=== PATIENT | male | born 1965 | race Hispanic/Latino ===

== ENCOUNTER 2017-08-22 15:19 | Emergency (ER) | payer SELFPAY ==
[2017-08-22] MEDS ORDERED: DEXAMETHASONE 10 MG/ML VIAL ONE (16:44)
[2017-08-22] MEDS ORDERED: HYDROCODONE/APAP 10/325 TAB ONE (16:45)
--- NOTE | 2017-08-22 16:49 | RAD REPORT ---
EXAM DESCRIPTION: RAD - Knee Left 3 View - 08/22/2017 4:33 pm CLINICAL HISTORY: Left knee pain FINDINGS: No fracture or dislocation is seen. Soft tissue swelling is present. A small to moderate joint effusion is seen. Mild narrowing involves the medial compartment.
--- NOTE | 2017-08-22 16:50 | RAD REPORT ---
EXAM DESCRIPTION: RAD - Foot Left 3 View - 08/22/2017 4:33 pm CLINICAL HISTORY: Left Foot pain FINDINGS: No fracture or dislocation is seen. No bony erosions are noted. The joint spaces are well-maintained. The bones appear osteoporotic.
[2017-08-22] MEDS ORDERED: cloNIDine HCl 0.1 MG TAB ONE (17:03)
--- NOTE | 2017-08-22 17:24 | ER ---
Nurse's Notes [facility] Name: David Barraza Age: 52 yrs Sex: Male : 1965 Arrival Date: 08/22/2017 Time: 15:24 Bed 15 Private MD: Kishan Muñiz T Diagnosis: Pain in left knee-osteoarthritis of knee;Pain in left foot-possible gout of great toe Presentation: 08/22 15:28 Presenting complaint: Patient states: i noticed on and off swelling on my R knee and hj big toe joint, L ankle;. Transition of care: patient was not received from another setting of care. Onset of symptoms was August 22, 2017. Care prior to arrival: None. 15:28 Method Of Arrival: Ambulatory 15:28 Acuity: HAMMAD 4 hj Triage Assessment: 15:30 General: Appears in no apparent distress. uncomfortable, Behavior is calm, cooperative, hj appropriate for age. Pain: Denies pain. Historical: - Allergies: 15:30 No Known Allergies; hj - Home Meds: 15:30 losartan 100 mg oral tab 1 tab once daily [Active]; metoprolol tartrate 100 mg Oral tab hj 1 tab 2 times per day [Active]; - PMHx: 15:30 Hypertension; hj - PSHx: 15:30 None; hj - Immunization history:: Adult Immunizations not up to date. - Social history:: Smoking status: Patient/guardian denies using tobacco. Screenin:39 Abuse screen: Denies threats or abuse. Denies injuries from another. Nutritional wh screening: No deficits noted. Tuberculosis screening: No symptoms or risk factors identified. Fall Risk None identified. Assessment: 16:35 General: Appears in no apparent distress. Behavior is calm, cooperative, appropriate wh for age. Pain: Complains of pain in Bilateral knee pain Pain does not radiate. Pain currently is 4 out of 10 on a pain scale. at worst was 8 out of 10 on a pain scale. Pain began On and off for 6 months now. 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 Cardiovascular: Denies chest pain, Capillary refill < 3 seconds. Respiratory: Airway is patent Respiratory effort is even, unlabored, Respiratory pattern is regular, symmetrical. GI: Abdomen is round non-distended. : No signs and/or symptoms were reported regarding the genitourinary system. EENT: No signs and/or symptoms were reported regarding the EENT system. Derm: Skin is intact, is healthy with good turgor, Skin is pink, warm \T\ dry. normal. Musculoskeletal: Range of motion: intact in all extremities. 17:36 Reassessment: Patient appears in no apparent distress at this time. Patient and/or family updated on plan of care and expected duration. Pain level reassessed. Patient is alert, oriented x 3, equal unlabored respirations, skin warm/dry/pink. Patient states feeling better. Vital Signs: 15:30 BP 176 / 100; Pulse 74; Resp 18; Temp 98.4(TE); Pulse Ox 100% on R/A; Weight 115.67 kg; hj Height 5 ft. 9 in. (175.26 cm); Pain 0/10; 16:40 BP 200 / 116; Pulse 70; Resp 18; Pulse Ox 98% on R/A; wh 17:38 BP 163 / 110; Pulse 68; Resp 18; Pulse Ox 99% on R/A; wh 15:30 Body Mass Index 37.66 (115.67 kg, 175.26 cm) ED Course: 15:24 Patient arrived in ED. rg4 15:24 Kishan Muñiz MD is Private Physician. rg4 15:29 Triage completed. hj 15:30 Arm band placed on right wrist. 15:47 Vj Lopez NP is PHCP. pm1 15:47 Filippo Woods MD is Attending Physician. pm1 16:22 Rohini Swanson is Primary Nurse. 16:30 X-ray completed. Portable x-ray completed in exam room. Patient tolerated procedure kc2 well. 16:31 Knee Left 3 View XRAY In Process Unspecified. EDMS 16:31 Foot Left 3 View XRAY In Process Unspecified. EDMS 16:39 Patient has correct armband on for positive identification. Placed in gown. Bed in low wh position. Call light in reach. Side rails up X 1. Pulse ox on. NIBP on. 17:21 Kishan Muñiz MD is Referral Physician. pm1 17:21 Paul Hernandez MD is Referral Physician. pm1 17:36 No provider procedures requiring assistance completed. Patient did not have IV access wh during this emergency room visit. Administered Medications: 16:34 Drug: Decadron - Dexamethasone 10 mg {Note: Given PO.} Route: IVP; Site: Other; 17:39 Follow up: Response: No adverse reaction 16:34 Drug: [place] 10 mg-325 mg 1 tabs Route: PO; 17:39 Follow up: Response: No adverse reaction 16:47 Drug: cloNIDine 0.2 mg Route: PO; 17:38 Follow up: Response: No adverse reaction Outcome: 17:24 Discharge ordered by MD. pm1 17:36 Discharged to home ambulatory. 17:36 Condition: improved 17:36 Discharge instructions given to patient, Instructed on discharge instructions, follow up and referral plans. POC Knee pain and Arthritis Demonstrated understanding of instructions, follow-up care, POC 17:39 Patient left the ED. Signatures: Dispatcher [employer] EDMS Yehuda Pope RN RN hj Vj Lopez, ANNE DIRECTOR OF FIRST IMPRESSIONS pm1 Rosa Doyle 2 Sameera Bailey 4 Rohini Swanson Corrections: (The following items were deleted from the chart) 15:32 15:28 Acuity: HAMMAD 5 hj hj 15:32 15:30 Pulse 74bpm; Resp 18bpm; Pulse Ox 100% RA; Temp 98.4F Temporal; 115.67 kg; Height hj 5 ft. 9 in.; BMI: 37.6; Pain 0/10; hj 15:33 15:30 BP 176 / 120; Pulse 74bpm; Resp 18bpm; Pulse Ox 100% RA; Temp 98.4F Temporal; hj 115.67 kg; Height 5 ft. 9 in.; BMI: 37.6; Pain 0/10; hj
--- NOTE | 2017-08-22 17:24 | EDPHYS ---
Physician Documentation [facility] Name: David Barraza Age: 52 yrs Sex: Male : 1965 Arrival Date: 08/22/2017 Time: 15:24 Bed 15 Private MD: Kishan Muñiz T ED Physician Filippo Woods HPI: 08/22 17:00 This 52 yrs old Male presents to ER via Ambulatory with complaints of Left pm1 knee swelling and left toe pain. 17:00 The patient presents with pain, swelling. The complaints affect the medial aspect of pm1 left foot and left knee. Context: The problem was sustained at home, resulted from an unknown cause, the patient can fully bear weight, the patient is able to ambulate, Problem is a result from a previous injury: No. Onset: The symptoms/episode began/occurred 6 month(s) ago, and became worse. Modifying factors: The symptoms are alleviated by OTC meds, the symptoms are aggravated by weight bearing, bending knee. Associated signs and symptoms: Pertinent negatives calf tenderness, fever, numbness, tingling. Treatment prior to arrival includes: no previous treatment. Severity of symptoms: in the emergency department the symptoms have improved. The patient has experienced similar episodes in the past, several times. The patient has not recently seen a physician. Patient with alternating knee pain for the past 6 months. Patient with pain and swelling to left knee at the moment. Right knee is pain free and not swollen. Patient also complaining of left great toe pain that he suspects is gout. Patient has improved his left great toe pain and swelling by reducing his consumption of red meat and alcohol recently. Historical: - Allergies: 15:30 No Known Allergies; hj - Home Meds: 15:30 losartan 100 mg oral tab 1 tab once daily [Active]; metoprolol tartrate 100 mg Oral tab hj 1 tab 2 times per day [Active]; - PMHx: 15:30 Hypertension; hj - PSHx: 15:30 None; hj - Immunization history:: Adult Immunizations not up to date. - Social history:: Smoking status: Patient/guardian denies using tobacco. ROS: 17:00 Constitutional: Negative for fever, chills, and weight loss, Eyes: Negative for injury, pm1 pain, redness, and discharge, ENT: Negative for injury, pain, and discharge, Neck: Negative for injury, pain, and swelling, Cardiovascular: Negative for chest pain, palpitations, and edema, Respiratory: Negative for shortness of breath, cough, wheezing, and pleuritic chest pain, Abdomen/GI: Negative for abdominal pain, nausea, vomiting, diarrhea, and constipation, Back: Negative for injury and pain. 17:00 Skin: Negative for injury, rash, and discoloration, Neuro: Negative for headache, weakness, numbness, tingling, and seizure. 17:00 MS/extremity: Positive for pain, swelling, of the left knee and medial aspect of left foot. Exam: 17:00 Constitutional: This is a well developed, well nourished patient who is awake, alert, pm1 and in no acute distress. Head/Face: Normocephalic, atraumatic. Neck: Trachea midline, no thyromegaly or masses palpated, and no cervical lymphadenopathy. Supple, full range of motion without nuchal rigidity, or vertebral point tenderness. No Meningismus. Chest/axilla: Normal chest wall appearance and motion. Nontender with no deformity. No lesions are appreciated. Cardiovascular: Regular rate and rhythm with a normal S1 and S2. No gallops, murmurs, or rubs. Normal PMI, no JVD. No pulse deficits. Respiratory: Lungs have equal breath sounds bilaterally, clear to auscultation and percussion. No rales, rhonchi or wheezes noted. No increased work of breathing, no retractions or nasal flaring. Abdomen/GI: Soft, non-tender, with normal bowel sounds. No distension or tympany. No guarding or rebound. No evidence of tenderness throughout. Back: No spinal tenderness. No costovertebral tenderness. Full range of motion. Skin: Warm, dry with normal turgor. Normal color with no rashes, no lesions, and no evidence of cellulitis. 17:00 Musculoskeletal/extremity: Extremities: grossly normal except: noted in the left knee: pain, swelling, noted in the MIP of left first toe: pain, ROM: intact in all extremities, Circulation is intact in all extremities. Sensation intact. 17:00 Neuro: Orientation: is normal, Motor: is normal, moves all fours, Gait: is steady, at a normal pace, without difficulty. Vital Signs: 15:30 BP 176 / 100; Pulse 74; Resp 18; Temp 98.4(TE); Pulse Ox 100% on R/A; Weight 115.67 kg; hj Height 5 ft. 9 in. (175.26 cm); Pain 0/10; 16:40 BP 200 / 116; Pulse 70; Resp 18; Pulse Ox 98% on R/A; wh 17:38 BP 163 / 110; Pulse 68; Resp 18; Pulse Ox 99% on R/A; wh 15:30 Body Mass Index 37.66 (115.67 kg, 175.26 cm) hj MDM: 15:48 Patient medically screened. pm1 17:19 Data reviewed: vital signs. Data interpreted: Pulse oximetry: on room air is 98 %. pm1 Interpretation: normal. Counseling: I had a detailed discussion with the patient and/or guardian regarding: the historical points, exam findings, and any diagnostic results supporting the discharge/admit diagnosis, radiology results, the need for outpatient follow up, for definitive care, a orthopedic surgeon, to return to the emergency department if symptoms worsen or persist or if there are any questions or concerns that arise at home. Special discussion: I have referred the patient to see his PCP for further evaluation of high blood pressure. 08/22 16:18 Order name: Knee Left 3 View XRAY; Complete Time: 16:57 pm1 08/22 16:18 Order name: Foot Left 3 View XRAY; Complete Time: 16:57 pm1 Administered Medications: 16:34 Drug: Decadron - Dexamethasone 10 mg {Note: Given PO.} Route: IVP; Site: Other; 17:39 Follow up: Response: No adverse reaction 16:34 Drug: [place] 10 mg-325 mg 1 tabs Route: PO; 17:39 Follow up: Response: No adverse reaction 16:47 Drug: cloNIDine 0.2 mg Route: PO; 17:38 Follow up: Response: No adverse reaction Disposition: 08/23 10:25 Co-signature as Attending Physician, Filippo Woods MD I agree with the assessment and amos plan of care. Disposition: 08/22/17 17:24 Discharged to Home. Impression: Pain in left knee - osteoarthritis of knee, Pain in left foot - possible gout of great toe. - Condition is Stable. - Discharge Instructions: Arthralgia, Arthritis, Nonspecific, Gout, Hypertension, Knee Pain, DASH Eating Plan, Managing Your High Blood Pressure. - Medication Reconciliation Form, Thank You Letter form. - Follow up: Emergency Department; When: As needed; Reason: Worsening of condition. Follow up: Kishan Muñiz MD; When: 2 - 3 days; Reason: Recheck today's complaints, Continuance of care, Re-evaluation by your physician. Follow up: Paul Hernandez MD; When: 2 - 3 days; Reason: Recheck today's complaints, Continuance of care, Re-evaluation by your physician. - Problem is new. - Symptoms have improved. Signatures: Dispatcher [employer] EDAR Filippo Woods MD MD cha Joaquin, Henry, RN RN Vj Burgess NP MONEY EXAMINER pm1 Rohini Swanson
== END 2017-08-22 17:39 | disposition home or self-care (01) ==
LOC: ER 15:19
DX: M17.12 Unilateral primary osteoarthritis, left knee (principal); M79.672 Pain in left foot; I10 Essential (primary) hypertension; X58.XXXA Exposure to other specified factors, initial encounter; Y93.9 Activity, unspecified; Y92.009 Unspecified place in unspecified non-institutional (private) residence as the place of occurrence of the external cause
CPT/HCPCS: 96374; 99283; J1100

== ENCOUNTER 2021-03-07 12:13 | Emergency (ER) | payer SELFPAY ==
[2021-03-07 14:04] LABS: Basophils % 0.5 % (0-1.3); Lymphocytes % 24.6 % (15.3-44.8); MPV 7.6 fL (7.6-11.3); RBC Red Blood Cell Count 4.37 M/uL (4.33-5.43)
[2021-03-07] MEDS ORDERED: ONDANSETRON 4 MG/2 ML VIAL ONE (14:08)
[2021-03-07] MEDS ORDERED: KETOROLAC 30 MG/ML INJ ONE (14:08)
[2021-03-07] MEDS ORDERED: MORPHINE 4 MG/ML SYR ONE (14:08)
[2021-03-07 14:19] LABS: Potassium 4.2 mmol/L (3.5-5.1); Uric Acid 7.4 mg/dL (3.5-7.2)
--- NOTE | 2021-03-07 15:16 | RAD REPORT ---
EXAM DESCRIPTION: RAD - Lumbar Spine 3 Views - 03/07/2021 2:44 pm CLINICAL HISTORY: back pain, injury COMPARISON: No comparisons FINDINGS: No acute fracture. No malalignment. Mild endplate spurring. There is also some mild diffus e disc height loss. IMPRESSION: No acute osseous abnormality involving the lumbar spine.
--- NOTE | 2021-03-07 15:23 | RAD REPORT ---
EXAM DESCRIPTION: RAD - Foot Left 3 View - 03/07/2021 2:44 pm CLINICAL HISTORY: PAIN COMPARISON: Foot Left 3 View dated 08/22/2017 FINDINGS: Acute fracture of the fourth proximal phalanx at the level of the distal metaphysis. The f racture is only mildly displaced. No significant focal degenerative changes. IMPRESSION: Mildly displaced fracture involving the fourth proximal phalanx. No intra-articular exte nsion.
--- NOTE | 2021-03-07 15:50 | RAD REPORT ---
EXAM DESCRIPTION: RAD - Ankle Right 3 View - 03/07/2021 2:44 pm CLINICAL HISTORY: Right ankle pain FINDINGS: No fracture or dislocation is seen. Soft tissue swelling Mild osteoarthritis Large plantar calcaneal spur
--- NOTE | 2021-03-07 16:29 | ER ---
Nurse's Notes [facility] Name: David Barraza Age: 55 yrs Sex: Male : 1965 Arrival Date: 03/07/2021 Time: 12:15 Bed 16 Private MD: Diagnosis: Strain of muscle, fascia and tendon of lower back;Nondisplaced fracture of proximal phalanx of left lesser toe(s);Sprain of ankle Presentation: 03/07 12:47 Chief complaint: Patient states: About two weeks ago patient was lifting heavy objects vg1 at work and noticed that back was sore the next day. States the pain wont go away. Stated lower left side of back and also when moves left leg has a shooting pain. Has been self medicating with Tylenol and Advil and states it 'slightly take pain away but comes right back'. Pt took 600 mg of Advil and 500 mg of Tylenol today. Coronavirus screen: Vaccine status: Patient reports being unvaccinated. Ebola Screen: Patient negative for fever greater than or equal to 101.5 degrees Fahrenheit, and additional compatible Ebola Virus Disease symptoms. Initial Sepsis Screen: Does the patient meet any 2 criteria? No. Patient's initial sepsis screen is negative. Does the patient have a suspected source of infection? No. Patient's initial sepsis screen is negative. Risk Assessment: Do you want to hurt yourself or someone else? Patient reports no desire to harm self or others. Onset of symptoms was February 20, 2021. 12:47 Method Of Arrival: Ambulatory vg1 12:47 Acuity: HAMMAD 3 vg1 Triage Assessment: 12:52 General: Appears in no apparent distress. uncomfortable, Behavior is calm, cooperative. vg1 Pain: Complains of pain in left low back. Musculoskeletal: Circulation, motion, and sensation intact. Historical: - Allergies: 12:52 No Known Allergies; vg1 - Home Meds: 12:52 losartan 100 mg Oral tab 1 tab once daily [Active]; metoprolol tartrate 100 mg Oral tab vg1 1 tab 2 times per day [Active]; - PMHx: 12:52 Hypertension; vg1 - Immunization history:: Adult Immunizations up to date, Client reports having NOT received the Covid vaccine. - Social history:: Smoking status: Patient denies any tobacco usage or history of. Screenin:24 Abuse screen: Denies threats or abuse. Denies injuries from another. Nutritional tc5 screening: No deficits noted. Tuberculosis screening: No symptoms or risk factors identified. Fall Risk None identified. Assessment: 13:10 General: Appears in no apparent distress. Behavior is calm, cooperative, appropriate tc5 for age, Reports low left side back pain, 6/10, 10/10 this am could hardly get out of bed to take tylenol and ibuprofen. Neuro: No deficits noted. Vital Signs: 12:47 BP 153 / 110; Pulse 69; Resp 18; Temp 97.6; Pulse Ox 98% ; Weight 102.06 kg; Height 5 vg1 ft. 9 in. (175.26 cm); Pain 6/10; 14:00 BP 185 / 112; Pulse 66; Resp 16; Pulse Ox 98% ; Pain 0/10; tc5 15:15 BP 161 / 89; Pulse 72; Resp 14; Pulse Ox 95% ; Pain 0/10; tc5 16:48 BP 148 / 91; Pulse 70; Resp 15; Pulse Ox 98% ; Pain 0/10; tc5 12:47 Body Mass Index 33.23 (102.06 kg, 175.26 cm) vg1 ED Course: 12:15 Patient arrived in ED. ds1 12:52 Triage completed. vg1 12:52 Arm band placed on. vg1 13:00 Darrian Vieira PA is PHCP. m 13:00 Emmy Amado MD is Attending Physician. [facility] 13:09 Shelbi Melton, RN is Primary Nurse. tc5 14:44 Lumbar Spine (3 Views) XRAY In Process Unspecified. EDMS 14:44 Foot Left 3 View XRAY In Process Unspecified. EDMS 14:44 Ankle Right 3 View XRAY In Process Unspecified. EDMS 16:27 Alberto Cain MD is Referral Physician. m 16:49 Inserted saline lock: 20 gauge in left antecubital area, using aseptic technique. Blood tc5 collected. 16:49 No provider procedures requiring assistance completed. IV discontinued, intact, tc5 bleeding controlled, No redness/swelling at site. Pressure dressing applied. 16:50 Patient has correct armband on for positive identification. Bed in low position. Call tc5 light in reach. Side rails up X 1. Administered Medications: 13:50 Drug: Ketorolac 30 mg Route: IVP; Site: left antecubital; tc5 14:24 Follow up: Response: No adverse reaction; Pain is decreased tc5 13:50 Drug: morphine 4 mg Route: IVP; Site: left antecubital; tc5 14:24 Follow up: Response: No adverse reaction; Pain is decreased tc5 13:50 Drug: Zofran (Ondansetron) 4 mg Route: IVP; Site: left antecubital; tc5 14:25 Follow up: Response: No adverse reaction tc5 16:50 Follow up: Response: No adverse reaction tc5 Outcome: 16:28 Discharge ordered by MD. oliver 16:49 Discharged to home ambulatory. tc5 16:49 Condition: stable 16:49 Discharge instructions given to patient. 16:56 Patient left the ED. tc5 Signatures: Dispatcher [employer] EDMS Darrian Vieira PA PA jmm Sanford, Demi ds1 Yusra Bailey RN RN vg1 Shelbi Melton RN RN tc5
--- NOTE | 2021-03-07 16:29 | EDPHYS ---
Physician Documentation [facility] Name: David Barraza Age: 55 yrs Sex: Male : 1965 Arrival Date: 03/07/2021 Time: 12:15 Bed 16 Private MD: ED Physician Emmy Amado HPI: 03/07 16:23 This 55 yrs old Male presents to ER via Ambulatory with complaints of Back jmm Pain. 16:23 The patient presents with pain that is acute. The symptoms are located in the low back. jmm Onset: The symptoms/episode began/occurred acutely, 2 week(s) ago. The pain does not radiate. Associated signs and symptoms: Pertinent positives: Pain, ankle pain. Modifying factors: The patient symptoms are alleviated by nothing, the patient symptoms are aggravated by any movement. This is a 56-year-old male with history of hypertension the presents emerged part with complaints of lower back pain which occurred after bending approximately 2 weeks ago. Patient states that is he yet to get back to his baseline. Patient also states that he has had to adjust his gait to compensate and is now complaining of pain to the left fifth toe as well as the right ankle.. Historical: - Allergies: 12:52 No Known Allergies; vg1 - Home Meds: 12:52 losartan 100 mg Oral tab 1 tab once daily [Active]; metoprolol tartrate 100 mg Oral tab vg1 1 tab 2 times per day [Active]; - PMHx: 12:52 Hypertension; vg1 - Immunization history:: Adult Immunizations up to date, Client reports having NOT received the Covid vaccine. - Social history:: Smoking status: Patient denies any tobacco usage or history of. ROS: 16:23 Constitutional: Negative for fever, chills, and weight loss, Cardiovascular: Negative jmm for chest pain, palpitations, and edema, Respiratory: Negative for shortness of breath, cough, wheezing, and pleuritic chest pain. 16:23 Back: Positive for pain with movement. 16:23 MS/extremity: Positive for pain. 16:23 All other systems are negative. Exam: 16:23 Constitutional: This is a well developed, well nourished patient who is awake, alert, jmm and in no acute distress. Head/Face: atraumatic. Eyes: EOMI, no conjunctival erythema appreciated ENT: Moist Mucus Membranes Neck: Trachea midline, Supple Chest/axilla: Normal chest wall appearance and motion. Cardiovascular: Regular rate and rhythm. No edema appreciated Respiratory: Normal respirations, no respiratory distress appreciated Abdomen/GI: Non distended, soft 16:23 Back: pain, that is moderate, of the lumbar area. 16:23 Musculoskeletal/extremity: ROM: intact in all extremities, Pain appreciated to the left fifth MTP, mild right ankle swelling appreciated, compartments are soft, neurovascular intact.. 16:23 Neuro: Orientation: is normal, Mentation: is normal, Memory: is normal. 16:23 Psych: Behavior/mood is pleasant, cooperative. Vital Signs: 12:47 BP 153 / 110; Pulse 69; Resp 18; Temp 97.6; Pulse Ox 98% ; Weight 102.06 kg; Height 5 vg1 ft. 9 in. (175.26 cm); Pain 6/10; 14:00 BP 185 / 112; Pulse 66; Resp 16; Pulse Ox 98% ; Pain 0/10; tc5 15:15 BP 161 / 89; Pulse 72; Resp 14; Pulse Ox 95% ; Pain 0/10; tc5 16:48 BP 148 / 91; Pulse 70; Resp 15; Pulse Ox 98% ; Pain 0/10; tc5 12:47 Body Mass Index 33.23 (102.06 kg, 175.26 cm) vg1 MDM: 13:31 Patient medically screened. [facility] 16:27 Data reviewed: vital signs, nurses notes. Counseling: I had a detailed discussion with [facility] the patient and/or guardian regarding: the historical points, exam findings, and any diagnostic results supporting the discharge/admit diagnosis, the need for outpatient follow up, to return to the emergency department if symptoms worsen or persist or if there are any questions or concerns that arise at home. 03/07 13:37 Order name: CBC with Diff; Complete Time: 14:11 [facility] 03/07 13:37 Order name: BMP; Complete Time: 14:25 [facility] 03/07 13:37 Order name: Uric Acid; Complete Time: 14:25 [facility] 03/07 13:38 Order name: Lumbar Spine (3 Views) XRAY; Complete Time: 15:32 [facility] 03/07 13:38 Order name: Foot Left 3 View XRAY; Complete Time: 15:32 [facility] 03/07 13:38 Order name: Ankle Right 3 View XRAY; Complete Time: 15:53 [facility] 03/07 13:37 Order name: Saline Lock; Complete Time: 14:25 [facility] Administered Medications: 13:50 Drug: Ketorolac 30 mg Route: IVP; Site: left antecubital; tc5 14:24 Follow up: Response: No adverse reaction; Pain is decreased tc5 13:50 Drug: morphine 4 mg Route: IVP; Site: left antecubital; tc5 14:24 Follow up: Response: No adverse reaction; Pain is decreased tc5 13:50 Drug: Zofran (Ondansetron) 4 mg Route: IVP; Site: left antecubital; tc5 14:25 Follow up: Response: No adverse reaction tc5 16:50 Follow up: Response: No adverse reaction tc5 Disposition: 16:27 Chart complete. [facility] 18:32 Co-signature as Attending Physician, Emmy Amado MD PA/SAWDUST DRIER's history reviewed, ma2 patient interviewed, and examined. I agree with assessment and care plan and confirm the diagnosis (es) above. Disposition Summary: 03/07/21 16:28 Discharge Ordered Location: Home [facility] Condition: Stable [facility] Diagnosis - Strain of muscle, fascia and tendon of lower back jmm - Nondisplaced fracture of proximal phalanx of left lesser toe(s) jmm - Sprain of ankle [facility] Followup: [facility] - With: Alberto Cain MD - When: 2 - 3 days - Reason: Recheck today's complaints, Continuance of care, Re-evaluation by your physician Discharge Instructions: - Discharge Summary Sheet [facility] - Ankle Sprain [facility] - Toe Fracture [facility] Forms: - Medication Reconciliation Form [facility] - Thank You Letter [facility] - Antibiotic Education [facility] - Prescription Opioid Use [facility] Prescriptions: - Medrol (Sukhi) 4 mg Oral Tablets, Dose Pack - take 1 tablet by ORAL route as directed - follow package instructions; 1 [facility] packet; Refills: 0, Product Selection Permitted - orphenadrine citrate 100 mg Oral Tablet Sustained Release - take 1 tablet by ORAL route 2 times per day As needed; 20 tablet; Refills: 0, [facility] Product Selection Permitted Signatures: Dispatcher [employer] Darrian Elena PA PA jmm Alzahri, Mohammad, MD MD ma2 Yusra Bailey, RN RN vg1 Shelbi Melton RN RN tc5
[2021-03-07 17:02] VITALS: TEMP 97.6
[2021-03-07 17:06] VITALS: BP 148/91; O2SAT 98
== END 2021-03-07 16:56 | disposition home or self-care (01) ==
LOC: ER 12:13
DX: S92.515A Nondisplaced fracture of proximal phalanx of left lesser toe(s), initial encounter for closed fracture (principal); S39.012A Strain of muscle, fascia and tendon of lower back, initial encounter; S93.402A Sprain of unspecified ligament of left ankle, initial encounter; I10 Essential (primary) hypertension
CPT/HCPCS: 36415; 72100; 80048; 84550; 85025; 96374; 96375; 99284; J2405

== ENCOUNTER 2021-09-30 12:06 | Inpatient (IN) | payer SELFPAY ==
--- OUTSIDE RECORDS SUMMARY | 2021-09-30 12:08 | XMS REPORT | Continuity of Care Document ---
:1965 Author Organization [facility] t Address [facility] [address] [place] [id number] Care Team Providers Name Role Phone Unavailable Unavailable Unavailable Problems This patient has no known problems. Allergies, Adverse Reactions, Alerts This patient has no known allergies or adverse reactions. Medications This patient has no known medications. Procedures This patient has no known procedures. Results This patient has no known results.
[2021-09-30 12:44] LABS: Absolute Lymphocytes (CBC) 2.3 K/uL (0.7-4.9); Hematocrit 47.4 % (39.6-49.0); Lymphocytes % 33.3 % (15.3-44.8); MPV 7.7 fL (7.6-11.3); RBC Red Blood Cell Count 4.98 M/uL (4.33-5.43)
[2021-09-30 12:49] LABS: Protime INR 0.96
[2021-09-30 13:05] LABS: Troponin High Sensitivity 18.2 pg/mL (<58.9)
--- NOTE | 2021-09-30 14:18 | EDPHYS ---
Physician Documentation [facility] Name: David Barraza Age: 56 yrs Sex: Male : 1965 Arrival Date: 09/30/2021 Time: 12:07 Bed 25 Private MD: Kishan Muñiz T ED Physician Emmy Amado HPI: 09/30 13:30 This 56 yrs old Male presents to ER via Ambulatory with complaints of Chest cp Pain - feels like heart skipping. 13:30 The patient or guardian reports chest pain that is located primarily in the anterior cp chest wall. Onset: yesterday. Associated signs and symptoms: Pertinent positives: palpitations, shortness of breath, Pertinent negatives: abdominal pain, cough, diaphoresis, lower extremity pain, lower extremity swelling, syncope. 13:30 The chest pain is described as a pressure. Duration: The patient or guardian reports a cp single episode, that is still ongoing, and unchanged. Historical: - Allergies: 12:22 calcium channel blockers; headache; iw - Home Meds: 12:22 losartan 100 mg Oral tab 1 tab once daily [Active]; metoprolol tartrate 100 mg Oral tab iw 1 tab 2 times per day [Active]; - PMHx: 12:23 Hypertension; iw - PSHx: 12:23 None; iw - Immunization history:: Adult Immunizations up to date. - Social history:: Smoking status: Patient denies any tobacco usage or history of. ROS: 13:35 Constitutional: Negative for body aches, chills, fever, poor PO intake. cp 13:35 Cardiovascular: Positive for chest pain, palpitations, Negative for edema. cp 13:35 Respiratory: Positive for shortness of breath, Negative for cough, wheezing. 13:35 Abdomen/GI: Negative for abdominal pain, vomiting, diarrhea, constipation. cp 13:35 Back: Negative for pain at rest, pain with movement. cp 13:35 Neuro: Negative for altered mental status, headache, weakness. 13:35 All other systems are negative. Exam: 13:30 ECG was reviewed by the Attending Physician. cp 13:38 Constitutional: The patient appears in no acute distress, alert, awake, cp non-diaphoretic, non-toxic, well developed, well nourished, obese. 13:38 Head/Face: Normocephalic, atraumatic. cp 13:38 Eyes: Periorbital structures: appear normal, Conjunctiva: normal, no exudate, no injection, Sclera: no appreciated abnormality, Lids and lashes: appear normal, bilaterally. 13:38 ENT: External ear(s): are unremarkable, Nose: is normal, Mouth: Lips: moist, Oral mucosa: pink and intact, moist, Posterior pharynx: Airway: no evidence of obstruction, patent. 13:38 Neck: ROM/movement: is normal, is supple, without pain, no range of motions limitations. 13:38 Chest/axilla: Inspection: normal. 13:38 Cardiovascular: Rate: normal, Rhythm: irregular, Edema: is not appreciated, JVD: is not appreciated. 13:38 Respiratory: the patient does not display signs of respiratory distress, Respirations: normal, no use of accessory muscles, no retractions, labored breathing, is not present, Breath sounds: are clear throughout, no decreased breath sounds, no stridor, no wheezing. 13:38 Abdomen/GI: Inspection: abdomen appears normal, Palpation: abdomen is soft and non-tender, in all quadrants. 13:38 Back: pain, is absent, ROM is normal. 13:38 Neuro: Orientation: to person, place \\T\\ time. Mentation: is normal, Cerebellar function: is grossly normal, Motor: moves all fours, strength is normal, Sensation: is normal. Vital Signs: 12:23 BP 137 / 104; Pulse 94; Resp 16; Temp 97.9(TE); Pulse Ox 99% on R/A; Weight 112.94 kg; iw Height 5 ft. 9 in. (175.26 cm); 14:00 BP 142 / 104; Pulse 98; Resp 17; Pulse Ox 98% ; bp 15:00 BP 148 / 106; Pulse 86; Resp 18; Pulse Ox 98% ; bp 16:00 BP 135 / 112; Pulse 93; Resp 19; Pulse Ox 98% ; bp 17:00 BP 170 / 123; Pulse 97; Resp 25; Pulse Ox 98% ; bp 18:00 BP 148 / 102; Pulse 95; Resp 17; Pulse Ox 100% ; bp 21:20 BP 141 / 89; Pulse 87; Resp 16; Temp 98.5; Pulse Ox 100% on R/A; Pain 0/10; jalyn 12:23 Body Mass Index 36.77 (112.94 kg, 175.26 cm) MDM: 13:17 Patient medically screened. 14:00 Differential diagnosis: abnormal EKG, acute myocardial infarction, pleurisy, pneumonia, cp pneumothorax, pulmonary embolus, stable angina, unstable angina. 14:15 Data reviewed: vital signs, nurses notes, lab test result(s), EKG, radiologic studies, cp plain films. 14:15 Data interpreted: clinical research monitor: rate is 98 beats/min, rhythm is atrial fibrillation, cp Pulse oximetry: on room air is 98 %. Interpretation: normal. Test interpretation: by ED physician or midlevel provider: ECG, plain radiologic studies. Counseling: I had a detailed discussion with the patient and/or guardian regarding: the historical points, exam findings, and any diagnostic results supporting the discharge/admit diagnosis, the presence of at least one elevated blood pressure reading (>120/80) during this emergency department visit, lab results, radiology results, the need for further work-up and treatment in the hospital. Physician consultation: Du Mckeon MD was contacted at 14:15, regarding admission, to the telemetry unit. patient's condition, and will see patient in ED, shortly. 09/30 12:24 Order name: Basic Metabolic Panel; Complete Time: 13:17 09/30 13:17 Interpretation: Normal except: CL 109; CRE 1.34; GFR 62. 09/30 12:24 Order name: CBC with Diff; Complete Time: 13:17 09/30 13:17 Interpretation: Normal except: MCV 95.2. 09/30 12:24 Order name: PT-INR; Complete Time: 13:17 09/30 12:24 Order name: Troponin HS; Complete Time: 13:17 09/30 14:42 Order name: Basic Metabolic Panel [facility] 09/30 14:42 Order name: Basic Metabolic Panel [facility] 09/30 14:42 Order name: Lipid Profile [facility] 09/30 14:42 Order name: Lipid Profile [facility] 09/30 14:42 Order name: Magnesium [facility]TX 09/30 14:42 Order name: Magnesium [facility] 09/30 14:56 Order name: SARS-COV-2 RT PCR (Document "Date of Onset" if Symptomatic) 09/30 20:29 Order name: SARS-COV-2 RT PCR [facility] 10/02 06:19 Order name: Basic Metabolic Panel EDMS 10/02 06:19 Order name: Phosphorus EDMS 09/30 12:24 Order name: XRAY Chest (1 view); Complete Time: 14:42 iw 09/30 14:42 Interpretation: Report review. cp 09/30 12:24 Order name: EKG; Complete Time: 12:24 iw 09/30 12:24 Order name: Cardiac monitoring; Complete Time: 12:36 iw 09/30 12:24 Order name: EKG - Nurse/Tech; Complete Time: 12:32 iw 09/30 12:24 Order name: IV Saline Lock; Complete Time: 12:36 iw 09/30 12:24 Order name: Labs collected and sent; Complete Time: 13:18 iw 09/30 12:24 Order name: O2 Per Protocol; Complete Time: 13:18 iw 09/30 12:24 Order name: O2 Sat Monitoring; Complete Time: 13:18 iw 09/30 14:42 Order name: CONS Physician Consult [facility]TX 09/30 14:42 Order name: Heart Healthy [facility]TX 10/02 06:19 Order name: Magnesium [facility]TX 10/02 06:20 Order name: Troponin High Sensitivity [facility] 10/03 04:01 Order name: Basic Metabolic Panel [facility]TX EC:30 Rate is 94 beats/min. Rhythm is irregular. QRS interval is normal. QT interval is cp normal. T waves are Inverted in lead aVR. Interpreted by me. Reviewed by me. Administered Medications: 13:50 Drug: Lovenox (enoxaparin) 1 mg/kg Route: Sub-Q; Site: right lower abdomen; bp 18:34 Follow up: Response: No adverse reaction bp Disposition Summary: 09/30/21 14:17 Hospitalization Ordered Hospitalization Status: Observation cp Provider: Du Mckeon cp Condition: Stable cp Problem: new cp Symptoms: have improved cp Bed/Room Type: Standard cp Location: [facility] ER HOLD(09/30/21 18:30) bp Room Assignment: ERHOLD-(09/30/21 18:30) bp Diagnosis - Unspecified atrial fibrillation cp - Chest pain, unspecified cp Forms: - Medication Reconciliation Form cp - SBAR form cp Signatures: Dispatcher [employer] [facility] Viviana Nelson RN RN iw Filippo Martinez PA PA cp Peltier, Brian, RN RN bp Corrections: (The following items were deleted from the chart) 12:22 Allergies: clcium channel blockers cause headache; iw iw 18: 14:17 Telemetry/MedSurg (observation) cp bp 18:30 14:17 cp bp
--- NOTE | 2021-09-30 14:18 | ER ---
Nurse's Notes [facility] Name: David Barraza Age: 56 yrs Sex: Male : 1965 Arrival Date: 09/30/2021 Time: 12:07 Bed 25 Private MD: Kishan Muñiz T Diagnosis: Unspecified atrial fibrillation;Chest pain, unspecified Presentation: 09/30 12:20 Chief complaint: Patient states: chest pressure and feels like heart is skipping beats, iw started at 4 am, hx of htn. Coronavirus screen: At this time, the client does not indicate any symptoms associated with coronavirus-19. Ebola Screen: Patient negative for fever greater than or equal to 101.5 degrees Fahrenheit, and additional compatible Ebola Virus Disease symptoms Patient denies exposure to infectious person. Patient denies travel to an Ebola-affected area in the 21 days before illness onset. No symptoms or risks identified at this time. Initial Sepsis Screen: Does the patient meet any 2 criteria? No. Patient's initial sepsis screen is negative. Does the patient have a suspected source of infection? No. Patient's initial sepsis screen is negative. Risk Assessment: Do you want to hurt yourself or someone else? Patient reports no desire to harm self or others. Onset of symptoms was September 30, 2021. 12:20 Method Of Arrival: Ambulatory iw 12:20 Method Of Arrival: Ambulatory iw 12:20 Acuity: HAMMAD 3 iw Triage Assessment: 13:15 General: Appears in no apparent distress. comfortable, Behavior is calm, cooperative, bp appropriate for age. Pain: Complains of pain in chest. EENT: No deficits noted. Neuro: No deficits noted. Cardiovascular: Reports chest pain, palpitations, Rhythm is irregular. Respiratory: No deficits noted. GI: No signs and/or symptoms were reported involving the gastrointestinal system. : No signs and/or symptoms were reported regarding the genitourinary system. Derm: No deficits noted. Musculoskeletal: No deficits noted. Historical: - Allergies: 12:22 calcium channel blockers; headache; iw - Home Meds: 12:22 losartan 100 mg Oral tab 1 tab once daily [Active]; metoprolol tartrate 100 mg Oral tab iw 1 tab 2 times per day [Active]; - PMHx: 12:23 Hypertension; iw - PSHx: 12:23 None; iw - Immunization history:: Adult Immunizations up to date. - Social history:: Smoking status: Patient denies any tobacco usage or history of. Screenin:00 Abuse screen: Denies threats or abuse. Denies injuries from another. Nutritional bp screening: No deficits noted. Tuberculosis screening: No symptoms or risk factors identified. Fall Risk None identified. Assessment: 13:15 Reassessment: SEE TRIAGE NOTE. bp 13:15 Pain: Pain radiates to right arm Pain began 1 day ago. bp 15:00 Reassessment: No changes from previously documented assessment. Patient and/or family bp updated on plan of care and expected duration. Pain level reassessed. Pain: Denies pain. 17:00 Reassessment: No changes from previously documented assessment. Patient and/or family bp updated on plan of care and expected duration. Pain level reassessed. ADMIT IN PROCESS. 18:32 Reassessment: No changes from previously documented assessment. Patient and/or family bp updated on plan of care and expected duration. Pain level reassessed. ADMIT IN PROCESS. Vital Signs: 12:23 BP 137 / 104; Pulse 94; Resp 16; Temp 97.9(TE); Pulse Ox 99% on R/A; Weight 112.94 kg; iw Height 5 ft. 9 in. (175.26 cm); 14:00 BP 142 / 104; Pulse 98; Resp 17; Pulse Ox 98% ; bp 15:00 BP 148 / 106; Pulse 86; Resp 18; Pulse Ox 98% ; bp 16:00 BP 135 / 112; Pulse 93; Resp 19; Pulse Ox 98% ; bp 17:00 BP 170 / 123; Pulse 97; Resp 25; Pulse Ox 98% ; bp 18:00 BP 148 / 102; Pulse 95; Resp 17; Pulse Ox 100% ; bp 21:20 BP 141 / 89; Pulse 87; Resp 16; Temp 98.5; Pulse Ox 100% on R/A; Pain 0/10; jalyn 12:23 Body Mass Index 36.77 (112.94 kg, 175.26 cm) iw ED Course: 12:07 Patient arrived in ED. am2 12:07 Kishan Muñiz MD is Private Physician. am2 12:21 Triage completed. iw 12:32 EKG done, by ED staff, reviewed by Emmy Amado MD. em1 12:36 Basic Metabolic Panel Sent. mb7 12:36 PT-INR Sent. mb7 12:36 Troponin HS Sent. mb7 12:36 CBC with Diff Sent. mb7 12:36 Inserted saline lock: 20 gauge in right upper arm, using aseptic technique. Blood mb7 collected. 13:13 Filippo Martinez PA is PHCP. cp 13:13 Emmy Amado MD is Attending Physician. cp 13:15 Arm band placed on. bp 13:17 Armani Moss, RN is Primary Nurse. bp 14:15 XRAY Chest (1 view) In Process Unspecified. EDMS 14:16 Du Mckeon MD is Hospitalizing Provider. cp 15:00 Patient has correct armband on for positive identification. Bed in low position. Call bp light in reach. Side rails up X2. Client placed on continuous cardiac and pulse oximetry monitoring. NIBP monitoring applied. 18:00 No provider procedures requiring assistance completed. Patient admitted, IV remains in bp place. Patient maintains SpO2 saturation greater than 95% on room air. 19:36 SARS-COV-2 RT PCR (Document "Date of Onset" if Symptomatic) Sent. jalyn 10/02 07:21 Primary Nurse role handed off by Armani Moss, DEDRA springer Administered Medications: 09/30 13:50 Drug: Lovenox (enoxaparin) 1 mg/kg Route: Sub-Q; Site: right lower abdomen; bp 18:34 Follow up: Response: No adverse reaction bp Medication: 18:34 VIS not applicable for this client. bp Outcome: 14:17 Decision to Hospitalize by Provider. cp 18:33 Admitted to ER Hold. Please see [facility] for further documentation. bp 18:33 Condition: stable 18:33 Instructed on the need for admit. 10/03 10:23 Patient left the ED. jl7 Signatures: Dispatcher [employer] EDMS Vijaya Cortez Irene, Gui Vitale RN em1 Filippo Martinez PA PA cp Leal, Jahala RN DEDRA [email or web address] Marta Garcia am2 Armani Moss, RN Breann Foote mb7 Rubi Troy RN RN bo Corrections: (The following items were deleted from the chart) 09/30 12:23 12:22 Allergies: clcium channel blockers cause headache; iw iw 19:03 15:00 BP 148 / 06; Pulse 86bpm; Resp 18bpm; Pulse Ox 98%; bp bp
[2021-09-30] MEDS ORDERED: ENOXAPARIN 100 MG/ML SYR SQ ONE (14:19)
--- NOTE | 2021-09-30 14:27 | RAD REPORT ---
EXAM DESCRIPTION: RAD - Chest Single View - 09/30/2021 2:13 pm CLINICAL HISTORY: CHEST PAIN COMPARISON: CHEST SINGLE VIEW dated 06/24/2015 FINDINGS: Lines: None. Lungs: No evidence of edema or pneumonia. Pleural: No significant pleural effusions or pneumothorax. Cardiac: Mild cardiomegaly. Bones: No acute fractures. Other: IMPRESSION: No acute cardiopulmonary disease.
[2021-09-30] MEDS ORDERED: ACETAMINOPHEN 500 MG TAB PO PRN (14:37)
[2021-09-30] MEDS ORDERED: ONDANSETRON 4 MG/2 ML VIAL IV PRN (14:37)
--- NOTE | 2021-09-30 14:40 | P.HP ---
Patient History Date of Service: 09/30/21 Reason for admission: Atrial fibrillation. History of Present Illness: 56-year-old male patient with a medical history significant for hypertension was evaluated in the emergency room for episode of rapid atrial fibrillation. He had reported palpitations and feeling of uneasiness around the chest region. He denies any overt episode of chest pain, nausea, vomiting, fever, chills, shortness of breath episode. In the ED was found to have tachycardia and EKG revealed atrial fibrillation with rapid ventricular response he was asked to be admitted and evaluation and observation. Initial troponin trend done in the ER was negative. Allergies NKDA Allergy (Uncoded 06/24/15 17:34) Unknown No Known Allergies Allergy (Uncoded 08/22/17 17:43) Unknown Home Medications: Chlordiazepoxide HCl [Librium] 10 mg PO DAILY PRN #30 capsule 06/25/15 Losartan Potassium [Cozaar] 100 mg PO DAILY #30 tablet 06/26/15 Metoprolol Tartrate [Lopressor] 100 mg PO BID #60 tablet 06/26/15 - Past Medical/Surgical History Diabetic: No - Family History Father -: Heart disease - Social History Alcohol use: No CD- Drugs: No Caffeine use: No Review of Systems General: Unremarkable Eyes: Unremarkable ENT: Unremarkable Respiratory: Unremarkable Cardiovascular: Palpitations Gastrointestinal: Unremarkable Genitourinary: Unremarkable Musculoskeletal: Unremarkable Integumentary: Unremarkable Neurological: Unremarkable Physical Examination - Physical Exam General: Alert, Oriented x3 HEENT: Atraumatic, Normocephalic Neck: Supple Respiratory: Normal air movement Cardiovascular: Normal S1 S2, Irregular heart rate/rhythm Gastrointestinal: Soft and benign Musculoskeletal: No swelling Neurological: Normal speech, Normal strength at 5/5 x4 extr - Studies Laboratory Data (last 24 hrs) 09/30/21 12:35: PT 10.5, INR 0.96 09/30/21 12:35: WBC 7.1, Hgb 16.5, Hct 47.4, Plt Count 239 09/30/21 12:35: Sodium 139, Potassium 4.0, BUN 14, Creatinine 1.34 H, Glucose 102 Assessment and Plan - Plan A. fib with RVR: He does have rapid ventricular response with underlying atrial fibrillation rhythm on EKG. We have started anticoagulation with Lovenox. Will continue rate control with diltiazem and metoprolol. We will have him on telemetry monitoring. Will obtain echocardiogram. Cardiology to evaluate. Hypertension: Will monitor vital signs per unit protocol and continue home antihypertensive medication of losartan. Prophylaxis: Lovenox for DVT prophylaxis and A. fib anticoagulation CODE STATUS: Full code. Disposition: Expected discharge in next 24 to 48 hours. - Advance Directives Does patient have a Living Will: No Does patient have a Durable POA for Healthcare: No
[2021-09-30 16:52] VITALS: BMI 36.9
[2021-09-30] MEDS: DILTIAZEM HCL 60 MG TAB PO SCH (18:00)
[2021-09-30] MEDS: HYDRALAZINE HCL 20 MG/ML VIAL IV PRN (23:15)
[2021-09-30] MEDS ORDERED: HYDRALAZINE HCL 20 MG/ML VIAL ONE (23:15)
[2021-10-01] MEDS ORDERED: CHLORDIAZEPOXIDE HCL 10 MG PO PRN (00:54)
[2021-10-01] MEDS: DIAZEPAM 5 MG TABLET PO PRN ×2 (01:07→23:09)
[2021-10-01] MEDS: Enoxaparin 120 MG/0.8 ML SYR SQ SCH ×2 (01:08→15:48)
[2021-10-01] MEDS ORDERED: DIAZEPAM 5 MG TABLET ONE ×2 (01:09→23:12)
[2021-10-01 05:12] LABS: Magnesium 1.7 mg/dL (1.8-2.4); Potassium 3.7 mmol/L (3.5-5.1)
[2021-10-01] MEDS ORDERED: MAGNESIUM SULFATE 1 gm IVPB 1 GM/100 ML BAG IV ONE ×2 (05:31→05:55)
[2021-10-01] MEDS ORDERED: POTASSIUM 25 MEQ EFFERV TAB PO ONE (05:32)
[2021-10-01] MEDS ORDERED: POTASSIUM 25 MEQ EFFERV TAB ONE (05:55)
[2021-10-01] MEDS: DILTIAZEM HCL 60 MG TAB PO SCH ×5 (05:55→23:09)
[2021-10-01] MEDS ORDERED: METOPROLOL XL 100 MG TAB PO SCH (06:00)
[2021-10-01] MEDS ORDERED: LOSARTAN POTASSIUM 50 MG TABLET ONE (08:24)
[2021-10-01] MEDS: LOSARTAN POTASSIUM 50 MG TABLET PO SCH (08:43)
[2021-10-01] MEDS ORDERED: HOME MED 1 EA UNK (Metoprolol Tartrate [Lopressor] 100 MG Tablet) PO SCH (09:00)
[2021-10-01] MEDS ORDERED: HOME MED 1 EA UNK (Losartan Potassium [Cozaar] 100 MG Tablet) PO SCH (09:00)
--- NOTE | 2021-10-01 12:32 | P.PN ---
Subjective Date of Service: 10/01/21 Chief Complaint: Atrial fibrillation. Subjective: No new changes, Improving Physical Examination - Vital Signs Temperature: 97.0 F Blood Pressure: 139/104 Pulse: 101 Respirations: 23 Pulse Ox (%): 99 - Physical Exam General: Alert, Oriented x3 HEENT: Atraumatic, Normocephalic Neck: Supple Respiratory: Normal air movement Cardiovascular: Regular rate/rhythm, Normal S1 S2 Gastrointestinal: Soft and benign Musculoskeletal: No swelling Neurological: Normal speech, Normal strength at 5/5 x4 extr - Studies Laboratory Data (last 24 hrs) 10/01/21 03:53: Sodium 139, Potassium 3.7, BUN 14, Creatinine 1.20, Glucose 95, Magnesium 1.7 L, Triglycerides 213 H, Cholesterol 196, HDL Cholesterol 47, Cholesterol/HDL Ratio 4.17 09/30/21 12:35: PT 10.5, INR 0.96 09/30/21 12:35: WBC 7.1, Hgb 16.5, Hct 47.4, Plt Count 239 09/30/21 12:35: Sodium 139, Potassium 4.0, BUN 14, Creatinine 1.34 H, Glucose 102 Assessment And Plan - Plan A. fib with RVR: He continues to have rapid heart rate in the low 100s. We will continue anticoagulation with Lovenox. Will continue rate control with diltiazem and metoprolol. We will have him on telemetry monitoring. Will obtain echocardiogram. Cardiology to evaluate. Hypertension: Will monitor vital signs per unit protocol and continue home antihypertensive medication of losartan. Prophylaxis: Lovenox for DVT prophylaxis and A. fib anticoagulation CODE STATUS: Full code. Disposition: Expected discharge in next 24 hours.
[2021-10-01] MEDS ORDERED: HYDRALAZINE HCL 20 MG/ML VIAL ONE ×2 (12:34→20:34)
[2021-10-01] MEDS: HYDRALAZINE HCL 20 MG/ML VIAL IV PRN ×2 (12:38→20:33)
--- NOTE | 2021-10-01 14:47 | EKG ---
Test Date: 2021-09-30 Test Time: 12:26:32 [place] Worker: GABRIELA MEASUREMENT RESULTS: Intervals: Rate: 94 [place]: QRSD: 96 QT: 340 QTc: 425 [place]: P: [place]: QRS: -62 T: 35 INTERPRETIVE STATEMENTS: Atrial fibrillation Left axis deviation Inferior infarct, age undetermined Anteroseptal infarct, age undetermined Abnormal ECG Compared to ECG 06/24/2015 10:20:02 Sinus rhythm no longer present Myocardial infarct finding still present Electronically Signed On 10-01-21 14:46:58 CDT by Edmundo Schmidt
[2021-10-01] MEDS ORDERED: ENOXAPARIN 60 MG/0.6 ML SQ ONE (15:43)
--- NOTE | 2021-10-01 20:41 | CON ---
Date of Consultation: 10/01/2021 Reason For Consultation: Atrial fibrillation with rapid ventricular response. History Of Present Illness: This is a 56-year-old male with history of hypertension, presented to [facility] emergency room with palpitation, found to be in atrial fibrillation with rapid ventricular response . Had chest pain with shortness of breath. Feels much better now as his heart rate is down. Past Medical History: As outlined above in the HPI. Medications: Refer reconciliation sheet for detailed list. Allergies: NO KNOWN DRUG ALLERGIES. Family History: No premature coronary artery disease or cancer. Social History: He smokes and he drinks about 6 beers every night. Does not use any drugs. Review of Systems: All systems reviewed and they were negative except as mentioned in HPI. Physical Examination: Vital Signs: Reviewed. Head and Neck: Pupils are equal, reactive to light. Intact eye movements. No JVD. No cervical lym phadenopathy. Neck: Supple. Thyroid is not enlarged. Lungs: Clear to auscultation bilaterally. No rhonchi, rales, or crackles. No accessory muscle use. Heart: Irregularly irregular. No extra sounds. Abdomen: Soft, nontender. Bowel sounds positive. No organomegaly. No masses or hernia. No rigidi ty or rebound. Extremities: No clubbing or cyanosis. Intact pulses. Skin: No rashes. Neurologic: Alert, awake, oriented x3. No acute focal deficits appreciated. Lymph nodes: No cervical or axillary adenopathy. Investigations: Hemoglobin 16.5, creatinine 1.2. Assessment And Recommendations: 1.Atrial fibrillation with rapid ventricular response. At this point, heart rate is down. a.Obtain an echocardiogram. b.Start on sotalol 80 mg twice a day and discontinue metoprolol and continue Cardizem. Adjust the C ardizem dose further for better heart rate control. 2.Chest pain. Negative troponin so far. We will continue management for rate control and try to co nvert to sinus rhythm. Obtain echocardiogram and trend at least 1 more set of cardiac enzymes and if it is negative, plan for outpatient stress test. Thank you for the consult. /DERRICKL Voice ID: [id number] Report ID: [id number]
[2021-10-02] MEDS ORDERED: IBUPROFEN 200 MG TAB PO ONE ×2 (01:32→01:52)
[2021-10-02] MEDS: SOTALOL HCL 80 MG TAB PO SCH ×4 (01:49→22:22)
[2021-10-02] MEDS: Enoxaparin 120 MG/0.8 ML SYR SQ SCH ×2 (01:50→14:00)
[2021-10-02] MEDS ORDERED: SOTALOL HCL 80 MG TAB ONE ×3 (01:52→22:25)
[2021-10-02] MEDS: ALPRAZOLAM 0.25 MG TABLET PO PRN ×2 (01:57→22:21)
[2021-10-02] MEDS ORDERED: ALPRAZOLAM 0.25 MG TABLET ONE ×2 (02:02→22:26)
[2021-10-02] MEDS ORDERED: NA CHLORIDE 0.9% 1,000 ML ONE (03:46)
[2021-10-02] MEDS: DILTIAZEM HCL 60 MG TAB PO SCH ×3 (05:45→17:48)
[2021-10-02 06:18] LABS: Magnesium 2.1 mg/dL (1.8-2.4); Potassium 3.6 mmol/L (3.5-5.1)
[2021-10-02] MEDS ORDERED: POTASSIUM 25 MEQ EFFERV TAB PO ONE (06:27)
[2021-10-02] MEDS ORDERED: POTASSIUM 25 MEQ EFFERV TAB ONE (06:36)
[2021-10-02] MEDS ORDERED: LOSARTAN POTASSIUM 50 MG TABLET ONE (08:36)
[2021-10-02] MEDS: LOSARTAN POTASSIUM 50 MG TABLET PO SCH (09:00)
[2021-10-02] MEDS ORDERED: ENOXAPARIN 30 MG/0.3 ML SQ ONE (14:07)
[2021-10-02] MEDS ORDERED: ENOXAPARIN 100 MG/ML SYR SQ ONE (14:07)
--- NOTE | 2021-10-02 14:38 | PN ---
Admitted to Dr. Arango on 10/01/2021. Has been seen by Dr. Schmidt already for new onset atrial fibrill ation. He is on sotalol, Cardizem, and Lovenox. He remains in atrial fibrillation at a rate of 90, on Cardizem and sotalol. He is on Lovenox. Echocardiogram is pending. We will see what the echo sh ows before making further decisions he can still go home on sotalol 80 b.i.d. in addition to the Cardizem and we will see him in the office in the near future and arrange for an outpatient ca rdioversion if he stays in AFib. KATHARINE/ALICIA Voice ID: [id number] Report ID: [id number]
--- NOTE | 2021-10-02 14:43 | ECHO ---
HEIGHT: 5 ft 9 in WEIGHT: 250 lb 0 oz DATE OF STUDY: 10/02/[address]: Du Mckeon MD 2-DIMENSIONAL: YES M.MODE: YES DOPPLER: YES COLOR FLOW: YES TDS: PORTABLE: YES DEFINITY: BUBBLE STUDY: DIAGNOSIS: ATRIAL FIBRILLATION CARDIAC HISTORY: CATHERIZATION: NO SURGERY: NO PROSTHETIC VALVE: NO PACEMAKER: NO MEASUREMENTS (cm) DIASTOLIC (NORMALS) SYSTOLIC (NORMALS) IVSd 1.5 (0.6-1.2) LA Diam 3.8 (1.9-4.0) LVEF 60-65% LVIDd 4.9 (3.5-5.7) LVIDs 2.7 (2.0-3.5) %FS 45% LVPWd 1.4 (0.6-1.2) Ao Diam 3.0 (2.0-3.7) 2 DIMENSIONAL ASSESSMENT: RIGHT ATRIUM: NORMAL LEFT ATRIUM: NORMAL RIGHT VENTRICLE: NORMAL LEFT VENTRICLE: NORMAL TRICUSPID VALVE: MILD TRICUSPID REGURGITATION MITRAL VALVE: NORMAL PULMONIC VALVE: NORMAL AORTIC VALVE: NORMAL PERICARDIAL EFFUSION: SMALL AORTIC ROOT: NORMAL LEFT VENTRICULAR WALL MOTION: NORMAL DOPPLER/COLOR FLOW: MILD TRICUSPID REGURGITATION COMMENTS: NORMAL LEFT VENTRICULAR EJECTION FRACTION 60-65%. NORMAL WALL MOTION. MILD TRICUSPID REGURGITATION. TECHNOLOGIST: BOBBI DONALD
[2021-10-03] MEDS: Enoxaparin 120 MG/0.8 ML SYR SQ SCH (01:03)
[2021-10-03] MEDS: DILTIAZEM HCL 60 MG TAB PO SCH ×2 (01:12→05:49)
[2021-10-03] MEDS ORDERED: IBUPROFEN 200 MG TAB PO ONE ×2 (02:40→02:50)
[2021-10-03 03:50] VITALS: O2SAT 95
[2021-10-03 04:01] LABS: Potassium 3.5 mmol/L (3.5-5.1)
[2021-10-03] MEDS ORDERED: POTASSIUM CL SA 10 MEQ TAB PO ONE ×2 (05:47→06:00)
[2021-10-03 07:46] VITALS: BP 117/95; TEMP 97.2
[2021-10-03] MEDS: SOTALOL HCL 80 MG TAB PO SCH (09:20)
[2021-10-03] MEDS: LOSARTAN POTASSIUM 50 MG TABLET PO SCH (09:20)
[2021-10-03] MEDS ORDERED: SOTALOL HCL 80 MG TAB ONE (09:24)
[2021-10-03] MEDS ORDERED: LOSARTAN POTASSIUM 50 MG TABLET ONE (09:24)
--- NOTE | 2021-10-03 21:57 | PN ---
Mr. Barraza had come in with atrial fibrillation. He was placed on sotalol. He continues Cardizem . Atrial fibrillation remains at a rate of 78 without any symptoms. I think he had a normal echocar diogram yesterday. He can go home on Cardizem, sotalol, and Eliquis. Follow up with us in 2 weeks. If he stays in atrial fibrillation, we will plan a cardioversion. KATHARINE/ALICIA Voice ID: [id number] Report ID: [id number]
== END 2021-10-03 10:22 | disposition home or self-care (01) | DRG 310 ==
LOC: ER 12:06 → ERHOLD 14:37 → OBSVTOIN 10-01 08:50
PROVIDERS: ADMIT Internal Medicine Nephrology; ATTEND Internal Medicine Nephrology
DX: I48.91 Unspecified atrial fibrillation (principal); I10 Essential (primary) hypertension; F17.200 Nicotine dependence, unspecified, uncomplicated; Z20.822 Contact with and (suspected) exposure to COVID-19
CPT/HCPCS: 36415; 71045; 80048; 80061; 83735; 84100; 84484; 85025; 85610; 93005; 93306; 96372; 99285; G0378; J0360; J1650; J3475; J7030; U0003

== ENCOUNTER 2022-09-26 13:26 | Emergency (ER) | payer SELFPAY ==
[2022-09-26 14:20] LABS: Potassium 3.5 mEq/L (3.5-5.1); Troponin High Sensitivity 14.2 pg/mL (<58.9)
[2022-09-26 14:25] LABS: Absolute Lymphocytes (CBC) 1.9 K/uL (0.7-4.9); Hematocrit 43.2 % (39.6-49.0); Lymphocytes % 27.5 % (15.3-44.8); MCV 96.4 fL (80-100); MPV 7.8 fL (7.6-11.3); RBC Red Blood Cell Count 4.48 M/uL (4.33-5.43)
--- NOTE | 2022-09-26 14:52 | RAD REPORT ---
EXAM DESCRIPTION: CT - Angio Aorta For Dissection - 09/26/2022 2:36 pm CLINICAL HISTORY: Chest pain radiating to the back. chest, back pain COMPARISON: <Comparisons> TECHNIQUE: CT angiography of the aorta was performed with MIPs. All CT scans are performed using dose optimization technique as appropriate and may include automated exposure control or mA/KV adjustment according to patient size. FINDINGS: A left aortic arch is present with normal branching pattern of the great vessels.No acute aortic finding is seen such as aneurysm, penetrating ulcer or dissection. The celiac axis, SMA, CECY and renal arteries are patent. No evidence of pulmonary embolism. The lungs are clear. The liver demonstrates no focal mass or biliary dilatation.Mild fatty liver.The spleen, pancreas, adr enal glands and kidneys are within normal limits for arterial phase imaging. No bowel obstruction, free fluid or abscess.No pathologic enlarged lymphadenopathy identified. No fracture or worrisome bone lesion seen. Small fat containing inguinal hernias. IMPRESSION: No acute aortic finding is demonstrated. Mild fatty liver.
[2022-09-26] MEDS ORDERED: ASPIRIN 81 MG CHEWABLE TABLET ONE (15:54)
[2022-09-26] MEDS ORDERED: LORAZEPAM 1 MG TABLET ONE (15:55)
--- NOTE | 2022-09-26 17:59 | EDPHYS ---
Physician Documentation [facility] Name: David Barraza Age: 57 yrs Sex: Male : 1965 Arrival Date: 09/26/2022 Time: 13:26 Bed 19 Private MD: ED Physician Roshan Hernandez HPI: 09/26 13:56 This 57 yrs old Male presents to ER via Ambulatory with complaints of Back rt Pain, Chest Pain. 13:56 Presents to the ED with 4 days of mid back pain which he states is right behind his rt heart. The patient denies any injury. The patient states that he developed a chest pressure. He states that he felt that something was not quite right. The patient reported mild nausea after eating without vomiting. None currently. He denies any chest pain at the moment but still has the back pain. Denies other acute complaints at this time, the radiation. No aggravating or alleviating factors.. Historical: - Allergies: 13:55 calcium channel blockers; headache; ap3 - Home Meds: 14:00 losartan 100 mg Oral tab 1 tab once daily [Active]; metoprolol tartrate 100 mg Oral tab eh3 1 tab 2 times per day [Active]; - PMHx: 13:55 Hypertension; ap3 - Immunization history:: Client reports having NOT received the Covid vaccine. - Social history:: Smoking status: Patient denies any tobacco usage or history of. Patient uses alcohol, on a daily basis. claims drinking about a 6 pack/day. - Family history:: not pertinent. ROS: 13:56 Constitutional: Negative for fever, chills, and weight loss, ENT: Negative for injury, rt pain, and discharge, Neck: Negative for injury, pain, and swelling, MS/Extremity: Negative for injury and deformity, Skin: Negative for injury, rash, and discoloration, Neuro: Negative for headache, weakness, numbness, tingling, and seizure, Psych: Negative for depression, anxiety, suicide ideation, homicidal ideation, and hallucinations. 13:56 Cardiovascular: Positive for chest pain, Negative for edema. 13:56 Respiratory: 13:56 Respiratory: Negative for cough, shortness of breath. 13:56 Abdomen/GI: Positive for nausea, Negative for abdominal pain, vomiting. 13:56 Back: Positive for pain at rest, pain with movement. Exam: 13:56 Constitutional: This is a well developed, well nourished patient who is awake, alert, rt and in no acute distress. Head/Face: Normocephalic, atraumatic. Chest/axilla: Normal chest wall appearance and motion. Nontender with no deformity. No lesions are appreciated. Cardiovascular: Regular rate and rhythm with a normal S1 and S2. No gallops, murmurs, or rubs. Normal PMI, no JVD. No pulse deficits. Respiratory: Lungs have equal breath sounds bilaterally, clear to auscultation and percussion. No rales, rhonchi or wheezes noted. No increased work of breathing, no retractions or nasal flaring. Abdomen/GI: Soft, non-tender, with normal bowel sounds. No distension or tympany. No guarding or rebound. No evidence of tenderness throughout. Back: No spinal tenderness. No costovertebral tenderness. Full range of motion. Skin: Warm, dry with normal turgor. Normal color with no rashes, no lesions, and no evidence of cellulitis. MS/ Extremity: Pulses equal, no cyanosis. Neurovascular intact. Full, normal range of motion. Neuro: Awake and alert, GCS 15, oriented to person, place, time, and situation. Cranial nerves II-XII grossly intact. Motor strength 5/5 in all extremities. Sensory grossly intact. Cerebellar exam normal. Normal gait. Psych: Awake, alert, with orientation to person, place and time. Behavior, mood, and affect are within normal limits. 13:56 ECG was reviewed by the Attending Physician. Vital Signs: 13:50 Pulse 68; Resp 18; Pulse Ox 100% ; Weight 120.2 kg; Pain 8/10; ap3 13:58 BP 205 / 124; eh3 14:30 BP 176 / 108; Pulse 61; Resp 15; Pulse Ox 97% on R/A; eh3 15:00 BP 201 / 124; Pulse 63; Resp 14; Pulse Ox 98% on R/A; eh3 15:30 BP 178 / 108; Pulse 64; Resp 15; Pulse Ox 98% on R/A; eh3 16:00 BP 189 / 115; Pulse 63; Resp 16; Pulse Ox 99% on R/A; eh3 16:30 BP 177 / 126; Pulse 66; Resp 16; Pulse Ox 98% on R/A; eh3 17:00 BP 188 / 116; Pulse 64; Resp 15; Pulse Ox 99% on R/A; eh3 17:30 BP 194 / 121; Pulse 67; Resp 18; Pulse Ox 99% on R/A; eh3 18:00 BP 186 / 117; Pulse 70; Resp 16; Pulse Ox 99% on R/A; eh3 13:50 Pain Scale: Adult ap3 MDM: 13:38 Patient medically screened. rt 18:21 Differential diagnosis: Acute coronary syndrome, pulmonary embolism, aortic dissection, rt musculoskeletal pain, nonspecific pain. Data reviewed: vital signs, nurses notes, lab test result(s), EKG, radiologic studies. Consideration of Admission/Observation Escalation of care including admission/observation considered. Patient with 2 negative troponins, 3 hours apart. Pain is improving in the ED. Patient states that he is comfortable with discharge to follow-up with cardiology as an outpatient, strict return precautions were discussed with the patient.. I considered the following discharge prescriptions or medication management in the emergency department Medications were administered in the Emergency Department. See MAR. Independent interpretation of the following test(s) in the Emergency Department CT Scan: My interpretation is No dissection seen on my interpretation of the CT scan images. Test considered but Not performed: X-ray: CT scan done, x-ray not needed.. Care significantly affected by the following chronic conditions: Hypertension. Counseling: I had a detailed discussion with the patient and/or guardian regarding: the historical points, exam findings, and any diagnostic results supporting the discharge/admit diagnosis, lab results, radiology results, the need for outpatient follow up, to return to the emergency department if symptoms worsen or persist or if there are any questions or concerns that arise at home. Response to treatment: the patient's symptoms have markedly improved after treatment, Patient states that he usually gets hypertensive when he is drinking, or has not had any alcohol. His hypertension is improved with Ativan.. 09/26 13:46 Order name: Basic Metabolic Panel; Complete Time: 14:28 rt 09/26 13:46 Order name: CBC with Diff; Complete Time: 14:28 rt 09/26 13:46 Order name: NT PRO-BNP; Complete Time: 14:28 rt 09/26 13:46 Order name: Troponin HS; Complete Time: 14:28 rt 09/26 13:46 Order name: Lipase; Complete Time: 14:28 rt 09/26 16:23 Order name: Troponin High Sensitivity; Complete Time: 17:54 rt 09/26 13:46 Order name: CT Aorta for Dissection; Complete Time: 14:54 rt 09/26 13:46 Order name: EKG; Complete Time: 13:47 rt 09/26 13:46 Order name: Cardiac monitoring; Complete Time: 13:57 rt 09/26 13:46 Order name: EKG - Nurse/Tech; Complete Time: 13:57 rt 09/26 13:46 Order name: IV Saline Lock; Complete Time: 13:59 rt 09/26 13:46 Order name: Labs collected and sent; Complete Time: 13:59 rt 09/26 13:46 Order name: O2 Per Protocol; Complete Time: 13:57 rt 09/26 13:46 Order name: O2 Sat Monitoring; Complete Time: 13:57 rt EC:56 Rate is 67 beats/min. Rhythm is regular, Normal Sinus Rhythm with No ectopy. Left axis rt deviation noted. NM interval is normal. QRS interval is normal. QT interval is normal. No Q waves. Clinical impression: NSR w/ Non-specific ST/T Changes. Administered Medications: 15:45 Drug: Aspirin PO Chewable Tablet 162 mg Route: PO; [facility] 17:00 Follow up: Response: No adverse reaction [facility] 15:45 Drug: LORazepam PO 2 mg Route: PO; [facility] 17:00 Follow up: Response: No adverse reaction [facility] Disposition Summary: 09/26/22 17:58 Discharge Ordered Location: Home rt Problem: new rt Symptoms: are resolved rt Condition: Stable rt Diagnosis - Chest pain, unspecified rt Followup: rt - With: Edmundo Schmidt MD - When: 2 - 3 days - Reason: Discharge Instructions: - Discharge Summary Sheet rt - Nonspecific Chest Pain, Adult rt Forms: - Medication Reconciliation Form rt - Thank You Letter rt - Antibiotic Education rt - Prescription Opioid Use rt Signatures: Dispatcher [employer] Marta Cassidy RN RN ap3 Ragini Mckeon RN RN 3 Roshan Hernandez MD MD rt
--- NOTE | 2022-09-26 17:59 | ER ---
Nurse's Notes [facility] Name: David Barraza Age: 57 yrs Sex: Male : 1965 Arrival Date: 09/26/2022 Time: 13:26 Bed 19 Private MD: Diagnosis: Chest pain, unspecified Presentation: 09/26 13:50 Chief complaint: Patient states: He has been having back pain for 4 days "behind his ap3 heart" but woke up this morning with a "funny feeling in his chest" this morning. Coronavirus screen: At this time, the client does not indicate any symptoms associated with coronavirus-19. Ebola Screen: No symptoms or risks identified at this time. Initial Sepsis Screen: Does the patient meet any 2 criteria? No. Patient's initial sepsis screen is negative. Does the patient have a suspected source of infection? No. Patient's initial sepsis screen is negative. Risk Assessment: Do you want to hurt yourself or someone else? Patient reports no desire to harm self or others. Onset of symptoms was September 22, 2022. 13:50 Method Of Arrival: Ambulatory ap3 13:50 Acuity: HAMMAD 2 ap3 Triage Assessment: 13:55 General: Appears in no apparent distress. Behavior is calm, cooperative. Pain: ap3 Complains of pain in back and chest. Neuro: Level of Consciousness is awake, alert, obeys commands, Oriented to person, place, time, situation. Cardiovascular: Reports chest pain, Patient's skin is warm and dry. Respiratory: Airway is patent Respiratory effort is even, unlabored, Respiratory pattern is regular, symmetrical. Musculoskeletal: Range of motion: intact in all extremities, Reports pain in back and chest. Historical: - Allergies: 13:55 calcium channel blockers; headache; ap3 - Home Meds: 14:00 losartan 100 mg Oral tab 1 tab once daily [Active]; metoprolol tartrate 100 mg Oral tab eh3 1 tab 2 times per day [Active]; - PMHx: 13:55 Hypertension; ap3 - Immunization history:: Client reports having NOT received the Covid vaccine. - Social history:: Smoking status: Patient denies any tobacco usage or history of. Patient uses alcohol, on a daily basis. claims drinking about a 6 pack/day. - Family history:: not pertinent. Screenin:56 [facility] ED Fall Risk Assessment (Adult) History of falling in the last 3 months, ap3 including since admission No falls in past 3 months (0 pts). Abuse screen: Denies threats or abuse. Nutritional screening: No deficits noted. Tuberculosis screening: No symptoms or risk factors identified. Assessment: 14:00 General: Appears in no apparent distress. uncomfortable, Behavior is calm, cooperative, eh3 appropriate for age. Pain: Complains of pain in chest and back. Neuro: Level of Consciousness is awake, alert, obeys commands, Oriented to person, place, time, situation. Cardiovascular: Capillary refill < 3 seconds Patient's skin is warm and dry. Respiratory: Airway is patent Respiratory effort is even, unlabored, Respiratory pattern is regular, symmetrical. GI: Abdomen is round non-distended. : No signs and/or symptoms were reported regarding the genitourinary system. EENT: No signs and/or symptoms were reported regarding the EENT system. Derm: Skin is pink, warm \\T\\ dry. Musculoskeletal: Circulation, motion, and sensation intact. 15:00 Reassessment: Patient appears in no apparent distress at this time. Patient and/or eh3 family updated on plan of care and expected duration. Pain level reassessed. Patient is alert, oriented x 3, equal unlabored respirations, skin warm/dry/pink. 16:00 Reassessment: Patient appears in no apparent distress at this time. Patient and/or eh3 family updated on plan of care and expected duration. Pain level reassessed. Patient is alert, oriented x 3, equal unlabored respirations, skin warm/dry/pink. 17:00 Reassessment: Patient appears in no apparent distress at this time. Patient and/or eh3 family updated on plan of care and expected duration. Pain level reassessed. Patient is alert, oriented x 3, equal unlabored respirations, skin warm/dry/pink. 18:00 Reassessment: Patient appears in no apparent distress at this time. Patient and/or eh3 family updated on plan of care and expected duration. Pain level reassessed. Patient is alert, oriented x 3, equal unlabored respirations, skin warm/dry/pink. Vital Signs: 13:50 Pulse 68; Resp 18; Pulse Ox 100% ; Weight 120.2 kg; Pain 8/10; ap3 13:58 BP 205 / 124; eh3 14:30 BP 176 / 108; Pulse 61; Resp 15; Pulse Ox 97% on R/A; eh3 15:00 BP 201 / 124; Pulse 63; Resp 14; Pulse Ox 98% on R/A; eh3 15:30 BP 178 / 108; Pulse 64; Resp 15; Pulse Ox 98% on R/A; eh3 16:00 BP 189 / 115; Pulse 63; Resp 16; Pulse Ox 99% on R/A; eh3 16:30 BP 177 / 126; Pulse 66; Resp 16; Pulse Ox 98% on R/A; eh3 17:00 BP 188 / 116; Pulse 64; Resp 15; Pulse Ox 99% on R/A; eh3 17:30 BP 194 / 121; Pulse 67; Resp 18; Pulse Ox 99% on R/A; eh3 18:00 BP 186 / 117; Pulse 70; Resp 16; Pulse Ox 99% on R/A; eh3 13:50 Pain Scale: Adult ap3 ED Course: 13:27 Patient arrived in ED. ts1 13:28 Roshan Hernandez MD is Attending Physician. rt 13:47 Ragini Mckeon, DEDRA is Primary Nurse. eh3 13:55 Triage completed. ap3 13:56 EKG done, by ED staff, reviewed by Roshan Hernandez MD. ap3 13:57 Arm band placed on right wrist. ap3 14:00 Inserted saline lock: 20 gauge in right antecubital area, using aseptic technique. eh3 Blood collected. 14:00 Patient has correct armband on for positive identification. Placed in gown. Bed in low eh3 position. Call light in reach. Side rails up X2. Client placed on continuous cardiac and pulse oximetry monitoring. NIBP monitoring applied. Door closed. Noise minimized. 14:38 CT Aorta for Dissection In Process Unspecified. EDMS 17:57 Edmundo Schmidt MD is Referral Physician. rt 18:05 No provider procedures requiring assistance completed. IV discontinued, intact, eh3 bleeding controlled, No redness/swelling at site. Pressure dressing applied. Administered Medications: 15:45 Drug: Aspirin PO Chewable Tablet 162 mg Route: PO; eh3 17:00 Follow up: Response: No adverse reaction eh3 15:45 Drug: LORazepam PO 2 mg Route: PO; eh3 17:00 Follow up: Response: No adverse reaction eh3 Medication: 18:05 VIS not applicable for this client. eh3 Outcome: 17:58 Discharge ordered by . rt 18:26 Patient left the ED. eh3 18:26 Discharged to home ambulatory. eh3 18:26 Condition: stable 18:26 Discharge instructions given to patient, Instructed on discharge instructions, follow up and referral plans. Demonstrated understanding of instructions, follow-up care. Signatures: Dispatcher [employer] EDMarta Peña RN RN ap3 Ragini Mckeon RN RN eh3 Roshan Hernandez MD MD rt Ana Rosa Maldonado PAS PAS ts1
[2022-09-26 18:55] VITALS: O2SAT 99
[2022-09-26 18:58] VITALS: BP 186/117
--- NOTE | 2022-09-27 14:27 | EKG ---
Test Date: 2022-09-26 Test Time: 13:45:17 [employer] Worker: ALP MEASUREMENT RESULTS: Intervals: Rate: 67 DE: 176 QRSD: 96 QT: 422 QTc: 445 [place]: P: 50 DE: 176 QRS: -40 T: 39 INTERPRETIVE STATEMENTS: Normal sinus rhythm Left axis deviation Anteroseptal infarct, age undetermined Abnormal ECG Compared to ECG 09/30/2021 12:26:32 Atrial fibrillation no longer present Myocardial infarct finding still present Electronically Signed On 09-27-22 14:26:10 CDT by Edmundo Schmidt
== END 2022-09-26 18:26 | disposition home or self-care (01) ==
LOC: ER 13:26
DX: R07.89 Other chest pain (principal)
CPT/HCPCS: 36415; 71275; 74175; 80048; 83690; 83880; 84484; 85025; 93005; Q9967

== ENCOUNTER 2024-05-16 09:24 | Emergency (ER) | payer OTHER, SELFPAY ==
--- OUTSIDE RECORDS SUMMARY | 2024-05-16 09:27 | XMS REPORT | Continuity of Care Document ---
Author Name Unknown Address [address] [facility] [address] th[address] Address [address] [facility] [address] [place] [address] Care Team Providers Care Waiter Waitress Name Role Phone GERARDO GARCIA Attending Clinician Unavailable CLAUDIO DE DIOS Attending Clinician Unavailable MARLENY CHOW Attending Clinician UnavailELIOT Tobin Attending Clinician Unavailable MELANIE HOLGUIN Attending Clinician UnaNADYA Ortiz Attending Clinician Unavailabl ORAL Ramirez Attending Clinician Unavailable LAB90 Attending Clinician Unavailable Payers Payer Name Policy Type Policy Number Effective Date Expirati on Date Source [employer] O SUPERINTENDENT JOB 94 ON 9 [id number] 2023 00:00:00 Problems Condition Name Condition Details Condition Category Status Onset Date Resolution Date Last Treatment Date Treating Clinician Comments Source Chronic low back pain Chronic Low Back Pain Problem Active 01-07 00:00: 00 [facility] Mixed hyperlipid emia Mixed Hyperlipid emia Problem Active 01-07 00:00: 00 [facility] Morbid obesity Morbid Obesity Problem Active 01-07 00:00: 00 [facility] Mixed anxiety and depressive disorder Mixed Anxiety and Depressive Disorder Problem Active 01-07 00:00: 00 [facility] Benign essential hypertensi on Benign Essential Hypertensi on Problem Active 01-07 00:00: 00 [facility] Paroxysmal atrial fibrillati on Paroxysmal Atrial Fibrillati on Problem Active 01-07 00:00: 00 [facility] Osteoarthr itis of knee Osteoarthr itis of Knee Problem Active 01-07 00:00: 00 [facility] Paroxysmal atrial fibrillati on (multi HCC) Paroxysmal atrial fibrillati on (multi HCC) Disease Active 06-11 00:00: 00 Lydia cordova Well adult exam Well adult exam Disease Active 2022-05 00:00: 00 Lydia cordova Social History Social Habit Start Date Stop Date Quantity Comments Source Sexual orientation Mookie kylebaldo Igor - External Alcoholic beverage intake 2023-12-10 00:00:00 2023-12-10 00:00:00 Current drinker of alcohol (finding) Lydia Costa - External Alcohol intake 2023-06-18 00:00:00 2023-06-18 00:00:00 Current drinker of alcohol (finding) Lydia Costa - External Alcohol Comment 2023-03-21 00:00:00 2023-03-21 00:00:00 daily drinker, hard seltzer 4 a day Lydia Costa - External Tobacco use and exposure 2023-03-21 00:00:00 2023-03-21 00:00:00 Smokeless tobacco non-user Lydia Costa - External History of Social function 2023-03-21 00:00:00 2023-03-21 00:00:00 Lydia Costa - External Sex assigned at 1965 00:00:00 1965 00:00:00 Lydia Costa - External Smoking Status Start Date Stop Date Source Never Smoker [facility] Medications Ordered Medication Name Filled Medication Name Start Date Stop Date Current Medication? Ordering Clinician Indication Dosage Frequency Signature (SIG) Comments Components Source diazePAM (Valium) 10 MG oral Tablet 12-09 17:15: 12 12-09 00:00 :00 No 10mg Take 1 tablet (10 mg total) by mouth every 12 hours as needed for anxiety. Lydia cordova Losartan Potassium (COZAAR) 100 MG oral Tablet 12-09 00:00: 00 Yes [id number] 100mg QD Take 1 tablet (100 mg total) by mouth daily. Lydia cordova Metoprolol Tartrate (LOPRESSOR) 50 MG oral Tablet 12-09 00:00: 00 Yes [id number] 50mg QD Take 1 tablet (50 mg total) by mouth daily. Lydia cordova Atorvastati n Calcium 10 MG oral Tablet 12-09 00:00: 00 Yes [id number] 10mg QD Take 1 tablet (10 mg total) by mouth nightly. Lydia crodova Sotalol HCl 80 MG oral Tablet 12-09 00:00: 00 Yes [id number] 80mg Q.5D Take 1 tablet (80 mg total) by mouth 2 times daily. Lydia cordova Losartan Potassium (COZAAR) 50 MG oral Tablet 11-21 00:00: 00 12-09 00:00 :00 No [id number] 100mg QD Take 2 tablets (100 mg total) by mouth daily. Lydia cordova Atorvastati n Calcium 10 MG oral Tablet 3-09 00:00: 00 12-09 00:00 :00 No [id number] 10mg QD Take 1 tablet (10 mg total) by mouth nightly. Lydia cordova Metoprolol Tartrate (LOPRESSOR) 50 MG oral Tablet 2 00:00: 00 12-09 00:00 :00 No [id number] 50mg QD Take 1 tablet (50 mg total) by mouth daily. Lydia cordova diazePAM (Valium) 10 MG oral Tablet 1 10:20: 14 Yes 10mg Take 1 tablet (10 mg total) by mouth every 12 hours as needed for anxiety. Lydia cordova Losartan Potassium (COZAAR) 50 MG oral Tablet 130 00:00: 00 Yes [id number] 50mg Take 1 tablet (50 mg total) by mouth daily. Lydia cordova Atorvastati n Calcium 10 MG oral Tablet 2022-05 1- 00:00: 00 Yes [id number] 10mg Take 1 tablet (10 mg total) by mouth nightly. Lydia cordova diazePAM (Valium) 10 MG oral Tablet 2022-05 09:52: 09 Yes 10mg Take 1 tablet (10 mg total) by mouth every 12 hours as needed for anxiety. Lydia Burgesskate cordova diazePAM (Valium) 10 MG oral Tablet 2022-05 14:55: 24 Yes 10mg Take 1 tablet (10 mg total) by mouth every 12 hours as needed for anxiety. Lydia Igor cordova Meloxicam 15 MG oral Tablet 2022-05 00:00: 00 Yes [id number] 15mg Take 1 tablet (15 mg total) by mouth as needed for pain. Lydia Igor cordova Sotalol HCl 80 MG oral Tablet 2022-05 00:00: 00 12-09 00:00 :00 No [id number] 80mg Q.5D Take 1 tablet (80 mg total) by mouth 2 times daily. Lydia Igor cordova Sotalol HCl 80 MG oral Tablet 2022-05 00:00: 00 03-26 00:00 :00 No 80mg Take 1 tablet (80 mg total) by mouth 2 times daily. Lydia cordova losartan 100 mg tablet Take 1 tablet every day by oral route. losartan 100 mg tablet Take 1 tablet every day by oral route. No 1 Q1D losartan 100 mg tablet Take 1 tablet every day by oral route. [facility] metoprolol tartrate 50 mg tablet Take 1 tablet twice a day by oral route. metoprolol tartrate 50 mg tablet Take 1 tablet twice a day by oral route. No 1 BID metoprolol tartrate 50 mg tablet Take 1 tablet twice a day by oral route. [facility] sotalol 80 mg tablet Take 1 tablet twice a day by oral route. sotalol 80 mg tablet Take 1 tablet twice a day by oral route. No 1 BID sotalol 80 mg tablet Take 1 tablet twice a day by oral route. [facility] Immunizations Ordered Immunization Name Filled Immunization Name Date Status Comments Source Influenza, Seasonal, Injectable, Preservative Free Unknown Completed Lydia zheng - External Influenza, Seasonal, Injectable, Preservative Free Unknown Completed Lydia zheng - External Influenza, Seasonal, Injectable, Preservative Free Unknown Completed Lydia Sey bold - External Influenza, Seasonal, Injectable, Preservative Free Unknown Completed Lydia Ordaz norm - External Vital Signs Vital Name Observation Time Observation Value Comments S sylvaince Body Weight 2024-01-08 00:00:00 261 [lb_av] [facility] BP Systolic 2024-01-08 00:00:00 138 mm[Hg] [facility] BMI (Body Mass Index) 2024-01-08 00:00:00 38.5 kg/m2 [facility] Height 2024-01-08 00:00:00 69 [in_i] [facility] BP Diastolic 2024-01-08 00:00:00 86 mm[Hg] [facility] Systolic blood pressure 2023-12-10 20:47:00 138 mm[Hg] Lydia Burgessybo ld - External Diastolic blood pressure 2023-12-10 20:47:00 82 mm[Hg] Lydia Burgessybo ld - External Heart rate 2023-12-10 20:47:00 68 /min Jose Miguelse y Seybold - External Body temperature 2023-12-10 20:47:00 36.61 Kaity Lydia Burgessybold - External Respiratory rate 2023-12-10 20:47:00 18 /min Lydia Barajasold - External Body height 2023-12-10 20:47:00 175.3 cm Gabriela Costa - External Body weight 2023-12-10 20:47:00 118.049 kg Gabriela yepez Seybold - External BMI 2023-12-10 20:47:00 38.43 kg/m2 Gabriela yepez Seybold - External Oxygen saturation in Arterial blood by Pulse oximetry 2023-12-10 20:47:00 98 /min Lydia Burgessybo ld - External Systolic blood pressure 2023-06-18 16:23:00 160 mm[Hg] Lydia Seybo ld - External Diastolic blood pressure 2023-06-18 16:23:00 99 mm[Hg] Lydia Seybo ld - External Heart rate 2023-06-18 16:15:00 70 /min Kelse y Seybold - External Body temperature 2023-06-18 16:15:00 36.67 Kaity Lydia Seybold - External Respiratory rate 2023-06-18 16:15:00 18 /min Lydia Seybold - External Body height 2023-06-18 16:15:00 175.3 cm Gabriela ey Seybold - External Body weight 2023-06-18 16:15:00 109.941 kg Gabriela ey Seybold - External BMI 2023-06-18 16:15:00 35.79 kg/m2 Gabriela ey Seybold - External Oxygen saturation in Arterial blood by Pulse oximetry 2023-06-18 16:15:00 99 /min Lydia Seybo ld - External Systolic blood pressure 2023-04-09 15:49:00 138 mm[Hg] Lydia Seybo ld - External Diastolic blood pressure 2023-04-09 15:49:00 86 mm[Hg] Lydia Seybo ld - External Heart rate 2023-04-09 15:49:00 64 /min Kelse y Seybold - External Body temperature 2023-04-09 15:49:00 36.83 Kaity Lydia Seybold - External Respiratory rate 2023-04-09 15:49:00 18 /min Lydia Seybold - External Body height 2023-04-09 15:49:00 175.3 cm Gabriela ey Seybold - External Body weight 2023-04-09 15:49:00 113.399 kg Gabriela ey Seybold - External BMI 2023-04-09 15:49:00 36.92 kg/m2 Gabriela ey Seybold - External Oxygen saturation in Arterial blood by Pulse oximetry 2023-04-09 15:49:00 97 /min Lydia Seybo ld - External Systolic blood pressure 2023-03-26 20:52:00 150 mm[Hg] Lydia Seybo ld - External Diastolic blood pressure 2023-03-26 20:52:00 88 mm[Hg] Lydia Seybo ld - External Heart rate 2023-03-26 20:40:00 76 /min Kelse y Seybold - External Body temperature 2023-03-26 20:40:00 36.61 Kaity Lydia Seybold - External Respiratory rate 2023-03-26 20:40:00 18 /min Lydia Seybold - External Body height 2023-03-26 20:40:00 175.3 cm Gabriela ey Seybold - External Body weight 2023-03-26 20:40:00 113.399 kg Gabriela ey Seybold - External BMI 2023-03-26 20:40:00 36.92 kg/m2 Gabriela ey Seybold - External Oxygen saturation in Arterial blood by Pulse oximetry 2023-03-26 20:40:00 98 /min Lydia Cash ld - External Procedures Procedure Date / Time Performed Performing Clinicia n Source X-RAY OF LUMBAR SPINE 2 OR 3 VIEW 2024-01-08 00:00:00 [facility] X-RAY OF KNEE 1 OR 2 VIEW 2024-01-08 00:00:00 [facility] ECG- ADULT 2023-04-09 16:39:30 Marleny Chow Seybold - External Encounters Start Date/Time End Date/Time Encounter Type Admission Type Attending [facility] Care Department Encounter ID Source 2024-05-06 11:15:00 2024-05-06 11:15:00 Outpatient GERARDO GARCIA [id number] [facility] 2024-02-21 00:00:00 2024-02-21 00:00:00 Outpatient CLAUDIO DE DIOS [id number] [facility] 2024-01-08 00:00:00 2024-01-08 00:00:00 Delphine Randle MD: [address] [place] [address] , [address], [place] [address] , Ph. [facility] [place] - [facility] - [place] - _HOU_[facility] [id number] [facility] e 2023-12-10 16:00:00 2023-12-10 16:00:00 Outpatient MARLENY CHOW [id number] Lydia Burgessbess 2023-11-22 00:00:00 2023-11-22 00:00:00 Outpatient MARLENY CHOW [id number] [facility] 2023-11-22 00:00:00 2023-11-22 00:00:00 Outpatient CLAUDIO DE DIOS [id number] [facility] 2023-11-22 00:00:00 2023-11-22 00:00:00 Outpatient CLAUDIO DE DIOS LYDIA [id number] [facility] 2023-11-22 00:00:00 2023-11-22 00:00:00 Outpatient MARLENY CHOW LYDIA [id number] [facility] 2023-11-20 16:00:00 2023-11-20 16:00:00 Outpatient MARLENY CHOW LYDIA [id number] [facility] 2023-11-19 00:00:00 2023-11-19 00:00:00 Outpatient MARLENY CHOW LYDIA [id number] [facility] 2023-11-06 14:00:00 2023-11-06 14:00:00 [facility]patient [facility] [id number] [facility]23-[facility]-06 00:00:00 2023-11-06 00:00:00 Outpatient MARLENY CHOW LYDIA [id number] [facility] 2023-11-04 00:00:00 2023-11-04 00:00:00 Outpatient MARLENY CHOW LYDIA [id number] [facility] 2023-11-01 13:20:00 2023-11-01 13:20:00 Outpatient ELIOT MALDONADO LYDIA [facility] [id number] [facility] 2023-10-17 15:30:00 2023-10-17 15:30:00 Outpatient MARLENY CHOW LYDIA [facility] [id number] [facility] 2023-10-17 00:00:00 2023-10-17 00:00:00 Outpatient PRECLAUDIO PORTERTABBY [facility] [id number] [facility] 2023-10-09 08:55:00 2023-10-09 08:55:00 Outpatient EZIOMELANIE [facility]YDIA [facility] [id number] [facility] 2023-09-18 00:00:00 2023-09-18 00:00:00 Outpatient PREZACLAUDIO Soriano LYDIA [facility] [id number] [facility] 2023-08-09 13:00:00 2023-08-09 13:00:00 Outpatient NADYA AGUILAR LYDIA [id number] [facility] 2023-07-26 13:15:00 2023-07-26 13:15:00 Outpatient NADYA AGUILAR LYDIA [id number] [facility] 2023-07-26 00:00:00 2023-07-26 00:00:00 Outpatient MARLENY CHOW LYDIA [place] [id number] [facility] 2023-07-15 00:00:00 2023-07-15 00:00:00 Outpatient LYDIA CHARLTON [id number] [facility] 2023-07-15 00:00:00 2023-07-15 00:00:00 Outpatient MARLENY CHOW LYDIA [place] [id number] [facility] 2023-07-10 10:00:00 2023-07-10 10:00:00 Outpatient MARLENY CHOW LYDIA [place] [id number] [facility] 2023-07-09 00:00:00 2023-07-09 00:00:00 Outpatient LYDIA CHARLTON [id number] [facility] 2023-07-02 10:10:00 2023-07-02 10:10:00 Outpatient ORAL JIMÉNEZ [id number] [facility] 2023-06-27 14:00:00 2023-06-27 14:00:00 Outpatient MARLENY CHOW LYDIA [place] [id number] [facility] 2023-06-18 10:30:00 2023-06-18 10:30:00 Outpatient MARLENY CHOW LYDIA [place] [id number] [facility] 2023-06-18 00:00:00 2023-06-18 00:00:00 Outpatient LYDIA CHARLTON [id number] [facility] 2023-06-14 10:30:00 2023-06-14 10:30:00 Outpatient MARLENY CHOW LYDIA [place] [id number] [facility] 2023-06-12 13:55:00 2023-06-12 13:55:00 Outpatient MELANIE HOLGUIN [id number] Lydia Seybold 2023-06-12 00:00:00 2023-06-12 00:00:00 Outpatient MELANIE HOLGUIN LYDIA [facility] [id number] [facility] 2023-05-09 10:00:00 2023-05-09 10:00:00 Outpatient MARLENY CHOW LYDIA [place] [id number] [facility] 2023-05-06 00:00:00 2023-05-06 00:00:00 Outpatient MARLENY CHOW LYDIA [place] [id number] [facility] 2023-04-10 00:00:00 2023-04-10 00:00:00 Outpatient MARLENY CHOW LYDIA [place] [id number] [facility] 2023-04-09 10:55:00 2023-04-09 10:55:00 Outpatient JANIE LYDIA [facility] [id number] [facility] 2023-04-09 10:00:00 2023-04-09 10:00:00 Outpatient MARLENY CHOW LYDIA [place] [id number] [facility] 2023-04-09 00:00:00 2023-04-09 00:00:00 Outpatient LYDIA CHARLTON [id number] Lydia [facility] 2023-03-28 12:30:00 2023-03-28 12:30:00 Outpatient NADYA AGUILAR LYDIA [place] [id number] Lydia [facility] 2023-03-27 08:30:00 2023-03-27 08:30:00 Outpatient NADYA AGUILAR LYDIA [place] [id number] Lydia [facility] 2023-03-26 15:00:00 2023-03-26 15:00:00 Outpatient MARLENY CHOW LYDIA [place] [id number] Lydia Seybbess 2023-03-22 15:00:00 2023-03-22 15:00:00 Outpatient MARLENY CHOW LYDIA [place] [id number] Lydia Burgessybbess 2023-03-20 15:00:00 2023-03-20 15:00:00 Outpatient MARLENY CHOW LYDIA [place] [id number] Lydia Costa Results Test Description Test Time Test Comments Results Result Co mments Source Lydia Costa - External
[2024-05-16 09:56] LABS: Absolute Eosinophils 0.1 K/uL (0-0.5); Absolute Lymphocytes (CBC) 1.4 K/uL (0.7-4.9); Absolute Monocytes 0.5 K/uL (0.1-1.3); Absolute Neutrophil 3.5 K/uL (1.8-8.0); Basophils % 0.5 % (0-1.3); Eosinophils % 2.2 % (0-4.4); Hematocrit 41.9 % (39.6-49.0); Hemoglobin 14.2 g/dL (13.6-17.9); MCH 33.3 pg (27.0-35.0); MCHC 33.9 g/dL (32.0-36.0); MCV 98.1 fL (80-100); MPV 8.1 fL (7.6-11.3); Monocytes % 8.6 % (3.3-12.3); Neutrophils % 62.7 % (41.7-73.7); Platelets 220 thou/uL (152-406); RBC Red Blood Cell Count 4.27 M/uL (4.33-5.43); Red Cell Distribution Width 13.4 % (12.1-15.2)
[2024-05-16 09:59] LABS: PT Prothrombin Time 10.9 SECONDS (9.4-12.5); Protime INR 0.97
[2024-05-16 10:13] LABS: Anion Gap 8.8 mEq/L (5.0-15.0); Potassium 3.8 mEq/L (3.5-5.1); Troponin High Sensitivity 11.7 pg/mL (<58.9)
--- NOTE | 2024-05-16 10:28 | RAD REPORT ---
EXAMINATION: ONE VIEW CHEST XR CLINICAL INDICATION: Male, 58 years old.,CHEST PAIN TECHNIQUE: Frontal chest projection is submitted. Examination is limited by patient positioning and t echnique. COMPARISON: 09/30/2021 FINDINGS: The lungs are essentially clear apart from minimal right basilar streaky opacities which may relate t o mild atypical infectious/inflammatory process, although under aeration could result in a similar appearance. No pneumothorax or sizable effusion. The heart is normal in size. Mediastinal contours ar e unremarkable. IMPRESSION: Questionable minimal right basilar reticular opacities as above.
--- NOTE | 2024-05-16 10:45 | EDPHYS ---
Physician Documentation [facility] Name: David Barraza Age: 58 yrs Sex: Male : 1965 Arrival Date: 05/16/2024 Time: 09:24 Bed 15 Private MD: ED Physician Filippo Woods HPI: 05/16 09:28 This 58 yrs old Male presents to ER via EMS with complaints of Nose Bleed, sb4 High Blood Pressure. 09:28 patient states that was drinking alcohol yesterday, had a nose bleed last night. woke sb4 up this morning with another nose bleed and elevated blood pressure - 200s/120s and called EMS. reports compliance with antihypertensives. has history of afib, not on any anticoagulation therapy. denies any headache, blurry vision, nausea, chest pain, sob. Historical: - Allergies: : calcium channel blockers; headache; hb - Home Meds: : losartan 80 mg Oral tab 1 tab daily [Active]; metoprolol tartrate 50 mg oral tablet hb [Active]; sotalol 80 mg oral tablet 2 times per day [Active]; - PMHx: :27 Hypertension; Atrial fibrillation; Arthritis; hb - PSHx: : None; hb - Immunization history:: Adult Immunizations up to date. - Infectious Disease History:: Denies. - Social history:: Smoking status: Patient denies any tobacco usage or history of. ROS: 09:28 Constitutional: Negative for fever, chills, and weight loss, sb4 09:28 ENT: Positive for nose bleed, :28 All other systems are negative, Exam: 09:28 Constitutional: This is a well developed, well nourished patient who is awake, alert, sb4 and in no acute distress. Head/Face: Normocephalic, atraumatic. Eyes: Extra-ocular motions intact. Periorbital areas with no swelling, redness, or edema. ENT: Mucous membranes moist. Cardiovascular: Regular rate and rhythm with a normal S1 and S2. Respiratory: No increased work of breathing, no retractions or nasal flaring. Abdomen/GI: Soft, non-tender, no distension. Back: No spinal tenderness. No costovertebral tenderness. Full range of motion. Skin: Warm, dry with normal turgor. Normal color with no rashes, no lesions, and no evidence of cellulitis. Vital Signs: 09:26 BP 198 / 113; Pulse 87; Resp 16; Temp 98.4; Pulse Ox 100% on R/A; Weight 120.2 kg; hb Height 5 ft. 9 in. ; Pain 0/10; 10:22 BP 150 / 99; sb4 10:33 BP 150 / 99; Pulse 75; Resp 15; Pulse Ox 99% on R/A; hb 11:04 BP 156 / 111; Pulse 72; Resp 16; Temp 98.4; Pulse Ox 98% on R/A; MAP 127 mmHg; Pain tm6 0/10; 09:26 Body Mass Index 39.13 (120.20 kg, 175.26 cm) hb 09:26 Pain Scale: Adult hb 11:04 Pain Scale: Adult tm6 MDM: 09:26 Medical Screening Exam initiated sb4 10:45 Data reviewed: vital signs, nurses notes, EMS record, lab test result(s), EKG, sb4 radiologic studies, and as a result, I will discharge patient. Counseling: I had a detailed discussion with the patient and/or guardian regarding the historical points, exam findings, and any diagnostic results supporting the discharge/admit diagnosis, the presence of at least one elevated blood pressure reading (>120/80) during this emergency department visit, lab results, radiology results, the need for outpatient follow up, for definitive care, to return to the emergency department if symptoms worsen or persist or if there are any questions or concerns that arise at home. 05/16 09:27 Order name: Basic Metabolic Panel; Complete Time: 10:15 sb4 05/16 09:27 Order name: CBC with Diff; Complete Time: 10: sb4 05/16 09:27 Order name: PT-INR; Complete Time: 10: sb4 05/16 09:27 Order name: Troponin HS; Complete Time: 10:15 sb4 05/16 09:27 Order name: XRAY Chest (1 view); Complete Time: : sb4 05/16 09:27 Order name: Cardiac monitoring; Complete Time: 09:51 sb4 05/16 09:27 Order name: EKG - Nurse/Tech; Complete Time: : sb4 05/16 09:27 Order name: IV Saline Lock; Complete Time: 09:51 sb4 05/16 09:27 Order name: Labs collected and sent; Complete Time: sb4 05/16 09:27 Order name: O2 Per Protocol; Complete Time: sb4 05/16 09: Order name: O2 Sat Monitoring; Complete Time: sb4 EC:43 Rate is 75 beats/min. Rhythm is regular, Normal Sinus Rhythm. Left axis deviation sb4 noted. ND interval is normal at 168 msec. QRS interval is normal at 104 msec. QT interval is normal at 414 msec. No Q waves. T waves are Normal. No ST changes noted. Clinical impression: No evidence of ischemia. Interpreted by me. Reviewed by me. Administered Medications: No medications were administered Disposition Summary: 05/16/24 10:45 Discharge Ordered Notes: Location: Home sb4 Problem: new sb4 Symptoms: have improved sb4 Condition: Stable sb4 Diagnosis - Essential (primary) hypertension sb4 - Epistaxis sb4 Followup: sb4 - With: Edmundo Schmidt MD - When: 1 week - Reason: Recheck today's complaints, Re-evaluation by your physician Discharge Instructions: - Discharge Summary Sheet sb4 - Hypertension, Adult, [id number] sb4 - Nosebleed, Adult, [id number] sb4 Forms: - Patient Portal Instructions sb4 - Leadership Thank You Letter sb4 Addendum: 05/18/2024 15:01 Co-signature as Attending Physician, Filippo Woods MD I agree with the assessment and c montalvo plan of care. Signatures: Dispatcher [employer] EDFilippo Clemons MD MD cha Baxter, Heather, RN RN Janice Marroquin PA-C PA-C sb4 Corrections: (The following items were deleted from the chart) 05/16 09: 09:28 BASIC METABOLIC PANEL+C.LAB.BRZ ordered. EDMS EDMS : 09:28 CBC+H.LAB.BRZ ordered. EDMS EDMS : 09:28 PROTIME (+INR)+COAG.LAB.BRZ ordered. EDMS EDMS : 09:28 Troponin High Sensitivity+C.LAB.BRZ ordered. EDMS EDMS : 09:28 Chest Single View+RAD.RAD.BRZ ordered. EDMS EDMS
--- NOTE | 2024-05-16 10:45 | ER ---
Nurse's Notes [facility] Name: David Barraza Age: 58 yrs Sex: Male : 1965 Arrival Date: 05/16/2024 Time: 09:24 Bed 15 Private MD: Diagnosis: Essential (primary) hypertension;Epistaxis Presentation: 05/16 09:26 Chief complaint: EMS states: Nosebleed last night and again thiis morning, high home BP hb readings >200/100. Coronavirus screen: At this time, the client does not indicate any symptoms associated with coronavirus-19. Ebola Screen: No symptoms or risks identified at this time. Initial Sepsis Screen: Does the patient meet any 2 criteria? No. Patient's initial sepsis screen is negative. Does the patient have a suspected source of infection? No. Patient's initial sepsis screen is negative. Risk Assessment: Do you want to hurt yourself or someone else? Patient reports no desire to harm self or others. Onset of symptoms was May 16, 2024. 09:26 Method Of Arrival: EMS: [facility] : Acuity: [facility] 3 hb Historical: - Allergies: : calcium channel blockers; headache; hb - Home Meds: : losartan 80 mg Oral tab 1 tab daily [Active]; metoprolol tartrate 50 mg oral tablet hb [Active]; sotalol 80 mg oral tablet 2 times per day [Active]; - PMHx: 09:27 Hypertension; Atrial fibrillation; Arthritis; hb - PSHx: : None; hb - Immunization history:: Adult Immunizations up to date. - Infectious Disease History:: Denies. - Social history:: Smoking status: Patient denies any tobacco usage or history of. Screenin:32 [facility] ED Fall Risk Assessment (Adult) History of falling in the last 3 months, hb including since admission No falls in past 3 months (0 pts) Confusion or Disorientation No (0 pts) Intoxicated or Sedated No (0 pts) Impaired Gait No (0 pts) Mobility Assist Device Used No (0 pt) Altered Elimination No (0 pt) Score/Fall Risk Level 0 - 2 = Low Risk Oriented to surroundings, Maintained a safe environment, Educated pt \T\ family on fall prevention, incl call for assistance when getting out of bed. Abuse screen: Denies threats or abuse. Denies injuries from another. Nutritional screening: No deficits noted. Tuberculosis screening: No symptoms or risk factors identified. Assessment: 09:32 General: Appears in no apparent distress. Behavior is calm, cooperative. Pain: Denies hb pain. Neuro: Level of Consciousness is awake, alert, obeys commands, Oriented to person, place, time, situation. Cardiovascular: Patient's skin is warm and dry. Respiratory: Respiratory effort is even, unlabored, Respiratory pattern is regular, symmetrical. GI: No signs and/or symptoms were reported involving the gastrointestinal system. : No signs and/or symptoms were reported regarding the genitourinary system. EENT: Reports nose bleed. Derm: Skin is pink, warm \T\ dry. Musculoskeletal: No signs and/or symptoms reported regarding the musculoskeletal system. 10:33 Reassessment: Patient appears in no apparent distress at this time. Patient and/or hb family updated on plan of care and expected duration. Pain level reassessed. Patient is alert, oriented x 3, equal unlabored respirations, skin warm/dry/pink. 11:04 Reassessment: Patient and/or family updated on plan of care and expected duration. Pain tm6 level reassessed. Patient is alert, oriented x 3, equal unlabored respirations, skin warm/dry/pink. Vital Signs: 09:26 BP 198 / 113; Pulse 87; Resp 16; Temp 98.4; Pulse Ox 100% on R/A; Weight 120.2 kg; hb Height 5 ft. 9 in. ; Pain 0/10; 10:22 BP 150 / 99; sb4 10:33 BP 150 / 99; Pulse 75; Resp 15; Pulse Ox 99% on R/A; hb 11:04 BP 156 / 111; Pulse 72; Resp 16; Temp 98.4; Pulse Ox 98% on R/A; MAP 127 mmHg; Pain tm6 0/10; 09:26 Body Mass Index 39.13 (120.20 kg, 175.26 cm) hb 09:26 Pain Scale: Adult hb 11:04 Pain Scale: Adult tm6 ED Course: 09:25 Patient arrived in ED. hb 09:26 Jaince Bedoya PA-C is PHCP. sb4 09:26 Filippo Woods MD is Attending Physician. sb4 09:27 Triage completed. hb 09:32 Arm band placed on. hb 09:32 Patient has correct armband on for positive identification. Provided Education on: use hb of call light . 09:33 EKG done, by ED staff, reviewed by Janice Bedoya PA-C. em1 09:34 Sarah Walters, RN is Primary Nurse. hb 09:48 Initial lab(s) drawn, by me, sent to lab. Inserted saline lock: 20 gauge in right hb antecubital area, using aseptic technique. Blood collected. Flushed with 10 mL NS. 09:51 Basic Metabolic Panel Sent. hb 09:51 CBC with Diff Sent. hb 09:51 PT-INR Sent. hb 09:51 Troponin HS Sent. hb 10:01 XRAY Chest (1 view) In Process Unspecified. EDMS 10:45 Edmundo Schmidt MD is Referral Physician. sb4 11:05 No provider procedures requiring assistance completed. IV discontinued, intact, tm6 bleeding controlled, No redness/swelling at site. Pressure dressing applied. Administered Medications: No medications were administered Medication: 09:32 VIS not applicable for this client. hb Outcome: 10:45 Discharge ordered by . sb4 11:05 Discharged to home ambulatory, tm6 11:05 Condition: stable 11:05 Discharge instructions given to patient, Instructed on discharge instructions, follow up and referral plans. Demonstrated understanding of instructions, follow-up care, 11:05 Patient left the ED. tm6 Signatures: Dispatcher [employer] EDMS Gui Martin em1 Sarah Walters, RN RN Janice Marroquin PA-C PA-C sb4 Adrien Iglesias RN RN tm6 Corrections: (The following items were deleted from the chart) 09:34 09:26 BP 198 / 113; Pulse 87bpm; Resp 16bpm; Pulse Ox 100% RA; Temp 98.4F; Pain 0/10, hb Adult; hb
[2024-05-16 11:20] VITALS: TEMP 98.4
[2024-05-16 11:25] VITALS: BP 156/111; O2SAT 98
--- NOTE | 2024-05-18 11:16 | EKG ---
Test Date: 2024-05-16 Test Time: 09:32:28 Legal Researcher: GABRIELA MEASUREMENT RESULTS: Intervals: Rate: 75 CO: 168 QRSD: 104 QT: 414 QTc: 462 [place]: P: 31 CO: 168 QRS: -49 T: 50 INTERPRETIVE STATEMENTS: Normal sinus rhythm Possible Left atrial enlargement Left axis deviation Inferior infarct, age undetermined Anteroseptal infarct, age undetermined Abnormal ECG Compared to ECG 09/26/2022 13:45:17 No significant changes Electronically Signed On 05-18-24 11:12:00 [employer] by Julian Wild
== END 2024-05-16 11:05 | disposition home or self-care (01) ==
LOC: ER 09:24
DX: R04.0 Epistaxis (principal); I10 Essential (primary) hypertension; I48.91 Unspecified atrial fibrillation
CPT/HCPCS: 36415; 71045; 80048; 84484; 85025; 85610; 93005; 99284

== ENCOUNTER 2024-06-29 09:06 | Emergency (ER) | payer OTHER ==
--- OUTSIDE RECORDS SUMMARY | 2024-06-29 09:09 | XMS REPORT | Continuity of Care Document ---
Author Name Unknown Address [address] [place], [place] [address] [place] [address] thconnect Address [address] [place] [address] Care Team Providers Care Crozer Name Role Phone MARLENY CHOW Attending Clinician UnavailGERARDO Ewing Attending Clinician Unavailable CLAUDIO DE DIOS Attending Clinician Unavailable ELIOT MALDONADO Attending Clinician Unavailable MELANIE HOLGUIN Attending Clinician UnaNADYA Ortiz Attending Clinician UnavailORAL Hernandez Attending Clinician Unavailable [id number] Attending Clinician Unavailable Payers Payer Name Policy Type Policy Number Effective Date Expirati on Date Source [employer] MP [facility] RN 94 ON 9 [id number] 2023 00:00:00 Problems Condition Name Condition Details Condition Category Status Onset Date Resolution Date Last Treatment Date Treating Clinician Comments Source Chronic low back pain Chronic Low Back Pain Problem Active 01-07 00:00: 00 [facility] Mixed hyperlipid emia Mixed Hyperlipid emia Problem Active 01-07 00:00: 00 [facility] Morbid obesity Morbid Obesity Problem Active 01-07 00:00: 00 [facility] Mixed anxiety and depressive disorder Mixed Anxiety and Depressive Disorder Problem Active 01-07 00:00: 00 [facility] Benign essential hypertensi on Benign Essential Hypertensi on Problem Active 01-07 00:00: 00 [facility] Paroxysmal atrial fibrillati on Paroxysmal Atrial Fibrillati on Problem Active 01-07 00:00: 00 [facility] Osteoarthr itis of knee Osteoarthr itis of Knee Problem Active 01-07 00:00: 00 [facility] Paroxysmal atrial fibrillati on [...] Start Date Stop Date Source Never Smoker [facility] Medications Ordered Medication Name Filled Medication Name [...] MG oral Tablet 12-09 00:00: 00 Yes [id number] 100mg QD Take 1 tablet (100 mg total) by mouth daily. Lydia cordova Metoprolol Tartrate (LOPRESSOR) 50 MG oral Tablet 12-09 00:00: 00 Yes [id number] 50mg QD Take 1 tablet (50 mg total) by mouth daily. Lydia cordova Atorvastati n Calcium 10 MG oral Tablet 12-09 00:00: 00 Yes [id number] 10mg QD Take 1 tablet (10 mg total) by mouth nightly. Lydia cordova Sotalol HCl 80 MG oral Tablet 12-09 00:00: 00 Yes [id number] 80mg Q.5D Take 1 tablet (80 mg total) by mouth 2 times daily. Lydia cordova Losartan Potassium (COZAAR) 50 MG oral Tablet 11-21 00:00: 00 12-09 00:00 :00 No [id number] 100mg QD Take 2 tablets (100 mg total) by mouth daily. Lydia cordova Atorvastati n Calcium 10 MG oral Tablet 3-09 00:00: 00 12-09 00:00 :00 No [id number] 10mg QD Take 1 tablet (10 mg total) by mouth nightly. Lydia cordova Metoprolol Tartrate (LOPRESSOR) 50 MG oral Tablet 2- 00:00: 00 12-09 00:00 :00 No [id number] 50mg QD Take 1 tablet (50 mg total) by mouth daily. Lydia cordova diazePAM (Valium) 10 MG oral Tablet 1 10:20: 14 Yes 10mg Take 1 tablet (10 mg total) by mouth every 12 hours as needed for anxiety. Lydia cordova Losartan Potassium (COZAAR) 50 MG oral Tablet 130 00:00: 00 Yes [id number] 50mg Take 1 tablet (50 mg total) by mouth daily. Lydia cordova Atorvastati n Calcium 10 MG oral Tablet 2022-05 1- 00:00: 00 Yes [id number] 10mg Take 1 tablet (10 mg total) by mouth nightly. Lydia cordova diazePAM (Valium) 10 MG oral Tablet 2022-05 09:52: 09 Yes 10mg Take 1 tablet (10 mg total) by mouth every 12 hours as needed for anxiety. Lydia Igor cordova diazePAM (Valium) 10 MG oral Tablet 2022-05 14:55: 24 Yes 10mg Take 1 tablet (10 mg total) by mouth every 12 hours as needed for anxiety. Lydia Igor cordova Meloxicam 15 MG oral Tablet 2022-05 00:00: 00 Yes [id number] 15mg Take 1 tablet (15 mg total) by mouth as needed for pain. Lydia Igor cordova Sotalol HCl 80 MG oral Tablet 2022-05 00:00: 00 12-09 00:00 :00 No [id number] 80mg Q.5D Take 1 tablet (80 mg [...] 1 tablet every day by oral route. [facility] metoprolol tartrate 50 mg tablet Take 1 tablet twice a day by oral route. metoprolol tartrate 50 mg tablet Take 1 tablet twice a day by oral route. No 1 BID metoprolol tartrate 50 mg tablet Take 1 tablet twice a day by oral route. [facility] sotalol 80 mg tablet Take 1 tablet twice a day by oral route. sotalol 80 mg tablet Take 1 tablet twice a day by oral route. No 1 BID sotalol 80 mg tablet Take 1 tablet twice a day by oral route. [facility] Immunizations Ordered Immunization Name Filled [...] Name Observation Time Observation Value Comments S ource Body Weight 2024-01-08 00:00:00 261 [lb_av] [facility] BP Systolic 2024-01-08 00:00:00 138 mm[Hg] [facility] BMI (Body Mass Index) 2024-01-08 00:00:00 38.5 kg/m2 [facility] Height 2024-01-08 00:00:00 69 [in_i] [facility] BP Diastolic 2024-01-08 00:00:00 86 mm[Hg] [facility] Systolic blood pressure 2023-12-10 20:47:00 138 mm[Hg] Lydia Seybo ld - External Diastolic blood pressure 2023-12-10 20:47:00 82 mm[Hg] Lydia Seybo ld - External Heart rate 2023-12-10 20:47:00 68 /min Jose Miguelse y Seybold - External Body temperature 2023-12-10 20:47:00 36.61 Kaity Lydia Seybold - External Respiratory rate 2023-12-10 20:47:00 18 /min Lydia Barajasold - External Body height 2023-12-10 20:47:00 175.3 cm Gabriela Costa - External Body weight 2023-12-10 20:47:00 118.049 kg Gabriela yepez Seybold - External BMI 2023-12-10 20:47:00 38.43 kg/m2 Gabriela yepez Seybold - External Oxygen saturation in Arterial blood by Pulse oximetry 2023-12-10 20:47:00 98 /min Lydia Seybo ld - External Systolic blood pressure 2023-06-18 16:23:00 160 mm[Hg] Lydia Seybo ld - External Diastolic blood pressure 2023-06-18 16:23:00 99 mm[Hg] Lydia Seybo ld - External Heart rate 2023-06-18 16:15:00 70 /min Kelse y Seybold - External Body temperature 2023-06-18 16:15:00 36.67 Kaity Yldia Seybold - External Respiratory rate 2023-06-18 16:15:00 [...] Body weight 2023-03-26 20:40:00 113.399 kg Gabriela yepez Seybold - External BMI 2023-03-26 20:40:00 36.92 kg/m2 Gabriela yepez Seybold - External Oxygen saturation in Arterial blood by Pulse oximetry 2023-03-26 20:40:00 98 /min Lydia Cash ld - External Procedures Procedure Date / Time Performed Performing Clinicia n Source X-RAY OF LUMBAR SPINE 2 OR 3 VIEW 2024-01-08 00:00:00 [facility] X-RAY OF KNEE 1 OR 2 VIEW 2024-01-08 00:00:00 [facility] ECG- ADULT 2023-04-09 16:39:30 Marleny Chow Selindaold - External Encounters Start Date/Time End Date/Time Encounter Type Admission Type Attending [facility] Facility Care Department Encounter ID Source 2024-05-21 00:00:00 2024-05-21 00:00:00 Outpatient MARLENY CHOW [id number] [facility] 2024-05-06 11:15:00 2024-05-06 11:15:00 Outpatient GERARDO GARCIA [id number] [facility] 2024-02-21 00:00:00 2024-02-21 00:00:00 Outpatient CLAUDIO DE DIOS [id number] [facility] 2024-01-08 00:00:00 2024-01-08 00:00:00 Delphine Randle MD: [address] [place] [address] , [address], [place] [address] , Ph. [facility] [place] - [facility] - [place] - VM_HOU_Beel er Kaci [id number] [facility] 2023-12-10 16:00:00 2023-12-10 16:00:00 Outpatient MARLENY CHOW [id number] [facility] 2023-11-22 00:00:00 2023-11-22 00:00:00 Outpatient MARLENY CHOW [id number] [facility] 2023-11-22 00:00:00 2023-11-22 00:00:00 Outpatient CLAUDIO DE DIOS LYDIA [id number] [facility] 2023-11-22 00:00:00 2023-11-22 00:00:00 Outpatient CLAUDIO DE DIOS LYDIA [id number] [facility] 2023-11-22 00:00:00 2023-11-22 00:00:00 Outpatient MARLENY CHOW LYDIA [id number] [facility] 2023-11-20 16:00:00 2023-11-20 16:00:00 Outpatient MARLENY CHOW LYDIA [id number] [facility] 2023-11-19 00:00:00 2023-11-19 00:00:00 [id number] 2023-11-06 14:00:00 2023-11-06 14:00:00 Outpatient MARLENY CHOW LYDIA [id number] [facility] 2023-11-06 00:00:00 2023-11-06 00:00:00 Out[facility]LEN[facility]OW [facility] [id number] [facility] 2023-11-04 00:00:00 2023-11-04 00:00:00 Outpatient MARLEN[facility] CHOW [facility] [id number] [facility] 2023-11-01 13:20:00 2023-11-01 13:20:00 Outpatient JOELELIOT Nicholas LYDIA [facility] [id number] [facility] 2023-10-17 15:30:00 2023-10-17 15:30:00 Outpatient MARLENY CHOW [facility] [place] [id number] [facility] 2023-10-17 00:00:00 2023-10-17 00:00:00 Outpatient CLAUDIO DE DIOS [facility] [id number] [facility] 2023-10-09 08:55:00 2023-10-09 08:55:00 Outpatient EZIOMELANIE LYDIA [place] [id number] [facility] 2023-09-18 00:00:00 2023-09-18 00:00:00 Outpatient PREZAS, CLAUDIO LYDIA [place] [id number] [facility] 2023-08-09 13:00:00 2023-08-09 13:00:00 Outpatient NADYA AGUILAR LYDIA [place] [id number] [facility] 2023-07-26 13:15:00 2023-07-26 13:15:00 Outpatient NADYA AGUILAR LYDIA [place] [id number] [facility] 2023-07-26 00:00:00 2023-07-26 00:00:00 Outpatient MARLENY CHOW LYDIA [place] [id number] [facility] 2023-07-15 00:00:00 2023-07-15 00:00:00 Outpatient LYDIA CHARLTON [id number] [facility] 2023-07-15 00:00:00 2023-07-15 00:00:00 Outpatient MARLENY CHOW [id number] [facility] 2023-07-10 10:00:00 2023-07-10 10:00:00 Outpatient SUZI CHOWTHIA LYDIA [place] [id number] [facility] 2023-07-09 00:00:00 2023-07-09 00:00:00 Outpatient LYDIA CHARLTON [id number] [facility] 2023-07-02 10:10:00 2023-07-02 10:10:00 Outpatient ORAL JIMÉNEZ LYDIA [place] [id number] [facility] 2023-06-27 14:00:00 2023-06-27 14:00:00 Outpatient LELIAOMEGAA LYDIA [place] [id number] [facility] 2023-06-18 10:30:00 2023-06-18 10:30:00 Outpatient MARLENY CHOW [id number] [facility] 2023-06-18 00:00:00 2023-06-18 00:00:00 Outpatient LYDIA CHARLTON [id number] [facility] 2023-06-14 10:30:00 2023-06-14 10:30:00 Outpatient MARLENY CHOW [id number] [facility] 2023-06-12 13:55:00 2023-06-12 13:55:00 Outpatient MELANIE HOLGUIN LYDIA [place] [id number] [facility] 2023-06-12 00:00:00 2023-06-12 00:00:00 Outpatient MELANIE HOLGUIN LYDIA LYDIA [id number] [facility] 2023-05-09 10:00:00 2023-05-09 10:00:00 Outpatient MARLENY CHOW LYDIA [place] [id number] [facility] 2023-05-06 00:00:00 2023-05-06 00:00:00 Outpatient MARLENY CHOW LYDIA [place] [id number] [facility] 2023-04-10 00:00:00 2023-04-10 00:00:00 Outpatient MARLENY CHOW LYDIA [place] [id number] [facility] 2023-04-09 10:55:00 2023-04-09 10:55:00 [facility] LYDIA [facility] [id number] [facility] 2023-04-09 10:00:00 2023-04-09 10:00:00 Outpatient MAR[facility] CHOW [facility] [place] [id number] [facility]:00:00 2023-04-09 00:00:00 Outpatient LYDIA CHARLTON [id number] [facility] 2023-03-28 12:30:00 2023-03-28 12:30:00 Outpatient NADYA AGUILAR LYDIA [place] [id number] [facility] 2023-03-27 08:30:00 2023-03-27 08:30:00 Outpatient NADYA AGUILAR LYDIA [place] [id number] [facility] 2023-03-26 15:00:00 2023-03-26 15:00:00 Outpatient MARLENY CHOW LYDIA [place] [id number] [facility] 2023-03-22 15:00:00 2023-03-22 15:00:00 Outpatient MARLENY CHOW LYDIA [place] [id number] [facility] 2023-03-20 15:00:00 2023-03-20 15:00:00 Outpatient MARLENY CHOW [id number] Lydia Costa Results Test Description Test Time Test Comments Results Result Co mments Source Lydia Costa - External
[2024-06-29] MEDS ORDERED: LEVALBUTEROL 1.25 MG/3 ML NEB ONE (09:36)
[2024-06-29] MEDS ORDERED: predniSONE 20 MG TAB ONE (09:36)
--- NOTE | 2024-06-29 09:57 | RAD REPORT ---
EXAMINATION: ONE VIEW CHEST XR CLINICAL INDICATION: COUGH TECHNIQUE: Frontal chest projection is submitted. Examination is limited by patient positioning and t echnique. COMPARISON: 05/16/2024 FINDINGS: Interstitial markings are prominent, similar to prior study. No focal infiltrate to suggest bacterial pneumonia. The heart is upper limit of normal in size. No displaced fractures identified.
[2024-06-29] MEDS ORDERED: ACETAMINOPHEN 500 MG TAB ONE (10:03)
[2024-06-29 10:15] LABS: SARS-CoV-2 Antigen CONTROL BLUE LINE VIS/BG OK; SARS-CoV-2 Antigen Rapid Res Negative (Negative)
--- NOTE | 2024-06-29 10:25 | ER ---
Nurse's Notes [facility] Name: David Barraza Age: 59 yrs Sex: Male : 1965 Arrival Date: 06/29/2024 Time: 09:06 Bed 13 Private MD: Diagnosis: Influenza due to identified novel influenza A virus Presentation: 06/29 09:22 Chief complaint: Patient states: cough, feels like lungs are congested, has phlegm, has iw been exposed to flu recently ,symptoms started Saturday. Coronavirus screen: Client presents with at least one sign or symptom that may indicate coronavirus-19. Ebola Screen: No symptoms or risks identified at this time. Initial Sepsis Screen: Does the patient meet any 2 criteria? No. Patient's initial sepsis screen is negative. Does the patient have a suspected source of infection? No. Patient's initial sepsis screen is negative. Risk Assessment: Do you want to hurt yourself or someone else? Patient reports no desire to harm self or others. :22 Method Of Arrival: Ambulatory iw 09:22 Onset of symptoms was June 24, 2024. iw : Acuity: HAMMAD 4 iw Triage Assessment: 10:25 General: Appears in no apparent distress. Behavior is calm, cooperative, appropriate ko1 for age. Pain: Denies pain. EENT: No deficits noted. No signs and/or symptoms were reported regarding the EENT system. Neuro: No deficits noted. Cardiovascular: No deficits noted. Respiratory: Reports cough that is productive. GI: No deficits noted. No signs and/or symptoms were reported involving the gastrointestinal system. : No deficits noted. No signs and/or symptoms were reported regarding the genitourinary system. Derm: No deficits noted. No signs and/or symptoms reported regarding the dermatologic system. Musculoskeletal: No deficits noted. No signs and/or symptoms reported regarding the musculoskeletal system. Historical: - Allergies: : calcium channel blockers; headache; iw - Home Meds: sotalol 80 mg Oral tablet 2 times per day [Active]; metoprolol tartrate 50 mg Oral iw tablet [Active]; losartan 80 mg Oral tab 1 tab daily [Active]; - PMHx: Arthritis; Atrial fibrillation; Hypertension; iw - PSHx: None; iw - Immunization history:: Adult Immunizations unknown. - Infectious Disease History:: Denies. - Family history:: not pertinent. - Social history:: Smoking status: Patient denies any tobacco usage or history of. Screenin:26 [facility] ED Fall Risk Assessment (Adult) History of falling in the last 3 months, ko1 including since admission No falls in past 3 months (0 pts) Confusion or Disorientation No (0 pts) Intoxicated or Sedated No (0 pts) Impaired Gait No (0 pts) Mobility Assist Device Used No (0 pt) Altered Elimination No (0 pt) Score/Fall Risk Level 0 - 2 = Low Risk Oriented to surroundings, Maintained a safe environment, Educated pt \T\ family on fall prevention, incl call for assistance when getting out of bed, Assessed \T\ reinforced patient's understanding of fall precautions, Hourly rounding (assess needs \T\ fall precautionary measures) done. Abuse screen: Denies threats or abuse. Denies injuries from another. Nutritional screening: No deficits noted. Tuberculosis screening: No symptoms or risk factors identified. Vital Signs: 09:22 BP 170 / 110; Pulse 69; Resp 19; Pulse Ox 98% on R/A; Weight 117.93 kg; Height 5 ft. 9 iw in. ; 10:25 BP 144 / 99; Pulse 70; Resp 15; Pulse Ox 97% ; ko1 09:22 Body Mass Index 38.39 (117.93 kg, 175.26 cm) iw ED Course: 09:10 Patient arrived in ED. al6 09:11 Roshan Hernandez MD is Attending Physician. rt 09:24 Triage completed. iw 09:25 Arm band placed on. iw 09:28 Concepción Best, DEDRA is Primary Nurse. ko1 09:49 SARS RAPID Sent. ko1 09:49 Influenza Screen (a \T\ B) Sent. ko1 09:54 Chest Single View XRAY In Process Unspecified. EDMS 10:02 COVID swab sent to lab. Flu and/or RSV swab sent to lab. Strep swab sent to lab. ty 10:26 Patient has correct armband on for positive identification. Allergy band placed. ko1 Provided Education on: meds. Pulse ox on. NIBP on. 10:26 No provider procedures requiring assistance completed. Patient did not have IV access ko1 during this emergency room visit. Administered Medications: 09:48 Drug: predniSONE PO 40 mg PO once Route: PO; ko1 10:18 Follow up: Response: No adverse reaction ko1 09:49 Drug: Levalbuterol Inhalation 1.25 mg Inhalation once Route: Inhalation; ko1 10:08 Follow up: Response: No adverse reaction ko1 10:03 Drug: Acetaminophen PO 1000 mg PO once Route: PO; ko1 10:31 Follow up: Response: No adverse reaction ko1 Medication: 10:26 VIS not applicable for this client. ko1 Outcome: 10:24 Discharge ordered by . rt 10:26 Discharged to home ambulatory, ko1 10:26 Condition: stable 10:26 Discharge instructions given to patient, Instructed on discharge instructions, follow up and referral plans. medication usage, Demonstrated understanding of instructions, follow-up care, medications, Prescriptions given X 1, 10:32 Patient left the ED. ko1 Signatures: Dispatcher [employer] EDMS Viviana Nelson RN RN iw Concepción Best RN RN ko1 Roshan Hernandez MD MD rt Moose Vega Alissa al6 Corrections: (The following items were deleted from the chart) 09:24 09:22 Pulse 69bpm; Resp 19bpm; Pulse Ox 98% RA; 117.93 kg; Height 5 ft. 9 in.; BMI: iw 38.3; iw 10:02 10:01 SARS-COV-2 Antigen Rapid+I.LAB.BRZ drawn and sent. ty ty 10:02 10:01 Influenza Screen (A \T\ B)+BA.LAB.BRZ drawn and sent. ty ty
--- NOTE | 2024-06-29 10:25 | EDPHYS ---
Physician Documentation [facility] Name: David Barraza Age: 59 yrs Sex: Male : 1965 Arrival Date: 06/29/2024 Time: 09:06 Bed 13 Private MD: ED Physician Roshan Hernandez HPI: 06/29 09:39 This 59 yrs old Male presents to ER via Ambulatory with complaints of Flu rt Symptoms. 09:39 Patient presents to the ED with cough, congestion starting on Saturday. States that rt the symptoms had initially gotten better with Mucinex, DayQuil, however, he start developing a worsening cough overnight. Patient is concerned for pneumonia. Denies any difficulty breathing, chest pain. Denies of acute complaints, symptoms are mild in severity, no other aggravating or alleviating factors.. Historical: - Allergies: : calcium channel blockers; headache; iw - Home Meds: :23 sotalol 80 mg Oral tablet 2 times per day [Active]; metoprolol tartrate 50 mg Oral iw tablet [Active]; losartan 80 mg Oral tab 1 tab daily [Active]; - PMHx: 09:23 Arthritis; Atrial fibrillation; Hypertension; iw - PSHx: :23 None; iw - Immunization history:: Adult Immunizations unknown. - Infectious Disease History:: Denies. - Family history:: not pertinent. - Social history:: Smoking status: Patient denies any tobacco usage or history of. ROS: 09:39 Constitutional: Negative for fever, chills, and weight loss, Cardiovascular: Negative rt for chest pain, palpitations, and edema, Abdomen/GI: Negative for abdominal pain, nausea, vomiting, diarrhea, and constipation, MS/Extremity: Negative for injury and deformity, Skin: Negative for injury, rash, and discoloration, Neuro: Negative for headache, weakness, numbness, tingling, and seizure, Psych: Negative for depression, anxiety, suicide ideation, homicidal ideation, and hallucinations, :39 ENT: Positive for rhinorrhea, sore throat, :39 Respiratory: Positive for cough, Negative for shortness of breath, Exam: :39 Constitutional: This is a well developed, well nourished patient who is awake, alert, rt and in no acute distress. Head/Face: Normocephalic, atraumatic. Chest/axilla: Normal chest wall appearance and motion. Nontender with no deformity. No lesions are appreciated. Cardiovascular: Regular rate and rhythm with a normal S1 and S2. No gallops, murmurs, or rubs. Normal PMI, no JVD. No pulse deficits. Abdomen/GI: Soft, non-tender, with normal bowel sounds. No distension or tympany. No guarding or rebound. No evidence of tenderness throughout. Skin: Warm, dry with normal turgor. Normal color with no rashes, no lesions, and no evidence of cellulitis. MS/ Extremity: Pulses equal, no cyanosis. Neurovascular intact. Full, normal range of motion. 09:39 Respiratory: Coarse breath sounds bilaterally, no respiratory distress, Vital Signs: 09:22 BP 170 / 110; Pulse 69; Resp 19; Pulse Ox 98% on R/A; Weight 117.93 kg; Height 5 ft. 9 iw in. ; 10:25 BP 144 / 99; Pulse 70; Resp 15; Pulse Ox 97% ; ko1 09:22 Body Mass Index 38.39 (117.93 kg, 175.26 cm) iw MDM: 09:26 Medical Screening Exam initiated rt 10:27 Differential Diagnosis Flu, pneumonia, bronchospasm. Data reviewed: vital signs, nurses rt notes, lab test result(s), radiologic studies. Consideration of Admission/Observation Escalation of care including admission/observation considered. Stable vital signs, no hypoxia, no signs of pneumonia, no indications for admission. I considered the following discharge prescriptions or medication management in the emergency department Medications were administered in the Emergency Department. See MAR. Independent interpretation of the following test(s) in the Emergency Department X-Ray: My interpretation is No infiltrate seen on interpretation of x-ray images. Test considered but Not performed: Other Details Stable vital signs, blood work not indicated, do not suspect pulmonary embolus, CT angiogram not indicated. Care significantly affected by the following chronic conditions: Atrial fibrillation. Counseling: I had a detailed discussion with the patient and/or guardian regarding the historical points, exam findings, and any diagnostic results supporting the discharge/admit diagnosis, lab results, radiology results, the need for outpatient follow up. Response to treatment: the patient's symptoms have markedly improved after treatment. 06/29 09:33 Order name: Influenza Screen (a \T\ B); Complete Time: 10:20 rt 06/29 09:33 Order name: SARS RAPID; Complete Time: 10:20 rt 06/29 09:33 Order name: Chest Single View XRAY; Complete Time: 09:59 rt Administered Medications: 09:48 Drug: predniSONE PO 40 mg PO once Route: PO; ko1 10:18 Follow up: Response: No adverse reaction ko1 09:49 Drug: Levalbuterol Inhalation 1.25 mg Inhalation once Route: Inhalation; ko1 10:08 Follow up: Response: No adverse reaction ko1 10:03 Drug: Acetaminophen PO 1000 mg PO once Route: PO; ko1 10:31 Follow up: Response: No adverse reaction ko1 Disposition Summary: 06/29/24 10:24 Discharge Ordered Notes: Location: Home rt Problem: new rt Symptoms: have improved rt Condition: Stable rt Diagnosis - Influenza due to identified novel influenza A virus rt Followup: rt - With: Private Physician - When: 2 - 3 days - Reason: Discharge Instructions: - Discharge Summary Sheet rt - Influenza, Adult, [id number] rt Forms: - Medication Reconciliation Form rt - Antibiotic Education rt - Prescription Opioid Use rt - Patient Portal Instructions rt - Leadership Thank You Letter rt Prescriptions: - Prednisone 20 mg Oral tablet - take 2 tablets ORAL route once daily .; 8 tablet; Refills: 0, Product Selection rt Permitted Signatures: Dispatcher [employer] Viviana Vega, RN DEDRA iw Concepción Best RN RN ko1 Roshan Hernandez MD MD rt
[2024-06-29 10:37] VITALS: BP 144/99; O2SAT 97
== END 2024-06-29 10:32 | disposition home or self-care (01) ==
LOC: ER 09:06
DX: J10.1 Influenza due to other identified influenza virus with other respiratory manifestations (principal); Z11.52 Encounter for screening for COVID-19
CPT/HCPCS: 36415; 87804 ×2; 71045; 87811; J7512; J7614; 99284